=== PATIENT | female | born 1950 | race Caucasian/White ===

== ENCOUNTER 2016-10-29 12:29 | Inpatient (IN) | payer MEDICARE, OTHER ==
[~2016-10-29] VITALS: Ht 162.6 cm; Wt 82.6 kg
[~2016-10-29 12:29] MED LIST: AMOX500C2; ASP325T PO; [UNRECOGNIZED DRUG - OTHER]
[2016-10-29] MEDS ORDERED: NS IV 1000 ML 1,000 ML IV ONE (13:00)
--- NOTE | 2016-10-29 13:07 | ED Abdominal Pain ---
General Chief Complaint: Abdominal/GI Problems Stated Complaint: FOOD POISONING Nursing Triage Note: C/o abd discomfort since yesterday. Amb to rm 10, states she started having full bloated feeling in abd diffusely radiating to lower back since yesterday. States she is unable to get comfortable and is currently rolling from side to side moaning. Anxious. Denies fever, vomiting or diarrhea. Thinks she maybe got food poisoning. Is able to stop moaning and rolling to mess with cell phone. States she is worried she may have twisitng or a hernia or heart attack or constipation Sepsis Screen: No Definite Risk Source of Information: Patient Exam Limitations: No Limitations History of Present Illness Time Seen By Provider: 12:50 Initial Comments Here with a variety of complaints that center around her abdomen. Patient reports that she has abdominal bloating and pain since yesterday after eating and thinks she may have food poisoning. She reports that she does have irritable bowel symptoms. She did have 3 bowel movements yesterday but none today. Does report nausea but no vomiting. She reports intermittent fever and chills. Denies dysuria. She has been able to drink some water today. Timing/Duration: 24 Hours Severity/Quality: Moderate, Cramping Location: Generalized Abdomen Radiation: Back Activities at Onset: None Modifying Factors: Improves With Movement Associated Symptoms: Back Pain, No Chest Pain, Fever/Chills, Fatigue, Nausea/ Vomiting, No Shortness of Air, Swelling/Mass in Abdomen, No Weakness Allergies and Home Medications Allergies Coded Allergies: codeine (Unverified Allergy, Mild, 10/29/16) ibuprofen (Unverified Allergy, Mild, 10/29/16) Home Medications Aspirin 325 Mg Tab, (Reported) [Natural Vitamins] , (Reported) Review of Systems Constitutional: see HPI, No chills, No fever EENTM: No Symptoms Reported Respiratory: No Symptoms Reported Cardiovascular: No Symptoms Reported Gastrointestinal: See HPI, Abdomen Distended, Abdominal Pain, Denies Diarrhea, Nausea, Denies Rectal Bleeding, Denies Vomiting Genitourinary: Denies Discharge, Denies Pain Musculoskeletal: no symptoms reported Skin: no symptoms reported All Other Systems Reviewed Negative Unless Noted: Yes Past Tspoecv-Sdqlhg-Vczqlh Hx Patient Social History Alcohol Use: Rarely Uses Recreational Drug Use: No Smoking Status: Never a Smoker 2nd Hand Smoke Exposure: No Recent Foreign Travel: No Contact w/Someone Who Travel: No Recent Infectious Disease Expo: No Recent Hopitalizations: No Immunizations Up To Date Tetanus Booster (TDap): Unknown Surgeries HX Surgeries: Yes (D &C) Respiratory Hx Respiratory Disorders: Yes (02 AT NIGHT ) Cardiovascular Hx Cardiac Disorders: No Cardiac Disorders: High Cholesterol Neurological Hx Neurological Disorders: No Genitourinary Hx Genitourinary Disorders: No Gastrointestinal Hx Gastrointestinal Disorders: Yes Gastrointestinal Disorders: Polyps Musculoskeletal Hx Musculoskeletal Disorders: Yes Musculoskeletal Disorders: Arthritis Endocrine Hx Endocrine Disorders: No Cancer Hx Cancer: No Psychosocial Hx Psychiatric Problems: Yes Behavioral Health Disorders: Anxiety Reviewed Nursing Assessment Reviewed/Agree w Nursing PMH: Yes Family Medical History Significant Family History: No Pertinent Family Hx Physical Exam Vital Signs VS - Last 72 Hours, by Label 10/29/16 12:44 Temp 97.6 Pulse 115 Resp 18 B/P (MAP) 178/104 Pulse Ox 96 Capillary Refill : Less Than 3 Seconds General Appearance: WD/WN, no apparent distress HEENT: PERRL/EOMI, pharynx normal Neck: full range of motion, supple Respiratory: lungs clear, normal breath sounds Cardiovascular: no murmur, tachycardia Gastrointestinal: normal bowel sounds, soft, No distended, No guarding, No rebound, tenderness (diffuse mild) Extremities: non-tender, normal inspection Back: normal inspection, no CVA tenderness, no vertebral tenderness Neurologic/Psychiatric: alert, oriented x 3 Skin: normal color, warm/dry Progress/Results/Core Measures Results/Orders Lab Results Laboratory Tests Test 10/29/16 13:04 Range/Units White Blood Count 10.4 4.3-11.0 10^3/uL Red Blood Count 4.79 4.35-5.85 10^6/uL Hemoglobin 14.8 11.5-16.0 G/DL Hematocrit 44 35-52 % Mean Corpuscular Volume 92 80-99 FL Mean Corpuscular Hemoglobin 31 25-34 PG Mean Corpuscular Hemoglobin Concent 34 32-36 G/DL Red Cell Distribution Width 14.3 10.0-14.5 % Platelet Count 267 130-400 10^3/uL Mean Platelet Volume 9.6 7.4-10.4 FL Neutrophils (%) (Auto) 89 H 42-75 % Lymphocytes (%) (Auto) 7 L 12-44 % Monocytes (%) (Auto) 3 0-12 % Eosinophils (%) (Auto) 0 0-10 % Basophils (%) (Auto) 0 0-10 % Neutrophils # (Auto) 9.2 H 1.8-7.8 X 10^3 Lymphocytes # (Auto) 0.8 L 1.0-4.0 X 10^3 Monocytes # (Auto) 0.3 0.0-1.0 X 10^3 Eosinophils # (Auto) 0.0 0.0-0.3 10^3/uL Basophils # (Auto) 0.0 0.0-0.1 10^3/uL Urine Color YELLOW Urine Clarity CLEAR Urine pH 5 5-9 Urine Specific [place] 1.025 H 1.016-1.022 Urine Protein NEGATIVE NEGATIVE Urine Glucose (UA) NEGATIVE NEGATIVE Urine Ketones NEGATIVE NEGATIVE Urine Nitrite POSITIVE H NEGATIVE Urine Bilirubin NEGATIVE NEGATIVE Urine Urobilinogen NORMAL NORMAL MG/DL Urine Leukocyte Esterase 1+ H NEGATIVE Urine RBC (Auto) 1+ H NEGATIVE Urine RBC NONE /HPF Urine WBC 5-10 H /HPF Urine Crystals NONE /LPF Urine Bacteria LARGE H /HPF Urine Casts NONE /LPF Urine Mucus SMALL H /LPF Urine Culture Indicated YES Sodium Level 140 135-145 MMOL/L Potassium Level 4.1 3.6-5.0 MMOL/L Chloride Level 103 98-107 MMOL/L Carbon Dioxide Level 22 21-32 MMOL/L Anion Gap 15 H 5-14 MMOL/L Blood Urea Nitrogen 19 H 7-18 MG/DL Creatinine 0.86 0.60-1.30 MG/DL Estimat Glomerular Filtration Rate > 60 BUN/Creatinine Ratio 22 Glucose Level 139 H 70-105 MG/DL Calcium Level 9.9 8.5-10.1 MG/DL Magnesium Level 2.2 1.8-2.4 MG/DL Total Bilirubin 0.4 0.1-1.0 MG/DL Aspartate Amino Transf (AST/SGOT) 39 H 5-34 U/L Alanine Aminotransferase (ALT/SGPT) 95 H 0-55 U/L Alkaline Phosphatase 73 40-136 U/L C-Reactive Protein High Sensitivity 1.39 H 0.00-0.50 MG/DL Total Protein 7.5 6.4-8.2 G/DL Albumin 4.1 3.2-4.5 G/DL Micro Results Microbiology 10/29/16 Influenza Types A,B Antigen (CAROLIN) - Final, Complete My Orders Orders - SHAHEED,CATRACHITO D MD Cbc With Automated Diff (10/29/16 13:00) Comprehensive Metabolic Panel (10/29/16 13:00) Hs C Reactive Protein (10/29/16 13:00) Magnesium (10/29/16 13:00) Ua Culture If Indicated (10/29/16 13:00) Influenza A And B Antigens (10/29/16 13:00) Saline Lock/Iv-Start (10/29/16 13:00) Ns Iv 1000 Ml (Sodium Chloride 0.9%) (10/29/16 13:00) Ct Abdomen/Pelvis Wo (10/29/16 13:25) Urine Culture (10/29/16 13:04) Pantoprazole Injection (Protonix Injecti (10/29/16 14:45) Amylase (10/29/16 14:45) Lipase (10/29/16 14:45) Fentanyl Injection (Sublimaze Injection (10/29/16 14:52) Ondansetron Injection (Zofran Injectio (10/29/16 15:00) Medications Given in ED Current Medications Medications Dose Ordered Sig/Latasha Route Start Time Stop Time Status Last Admin Dose Admin Sodium Chloride 1,000 ml @ 0 mls/hr Q0M ONCE IV 10/29/16 13:00 10/29/16 13:02 DC 10/29/16 13:10 1,000 MLS/HR Vital Signs/I&O Vital Sign - Last 12Hours 10/29/16 12:44 Temp 97.6 Pulse 115 Resp 18 B/P (MAP) 178/104 Pulse Ox 96 Blood Pressure Mean: 128 Progress Note : Progress Note Seen and evaluated. IV, labs, UA, normal saline 1 L bolus ordered. Monitor patient. 1441: CT findings discussed with radiologist. Concerns for peptic ulcer disease is fairly significant. Protonix 80 mg IV. Fentanyl 25 g IV and Zofran 4 mg IV ordered. I did discuss the case with Dr. Summers. We will admit the patient to the hospital for further evaluation. Initiate Rocephin and Flagyl therapy. Rocephin 1 g IV ordered. Case discussed with patient who agrees to admission. Patient has both peptic ulcer disease and urinary tract infection. Case discussed with Dr. Sanz, on-call for Dr. Walters. He accepts patient for admission, inpatient status. Dr. Summers will consult. Diagnostic Imaging Diagonstic Imaging: CT Plain Films/CT/US/NM/MRI: abdomen, pelvis Comments Preliminary read with significant amount of inflammatory changes around the duodenum and pancreas concerning for peptic ulcer disease. Final report pending. Discussed with radiologist. Reviewed: Discussed w/Radiologist Departure Communication Time/Spoke to Admitting Phy: 15:04 Time/Spoke to Consulting Physi: 14:41 Impression Impression: Primary Impression: Peptic ulcer disease Additional Impression: Urinary tract infection Qualified Codes: N30.00 - Acute cystitis without hematuria Disposition: ADMITTED INPATIENT Condition: Stable Decision to Admit Reason: Admit from ER (General) Decision to Admit/Date: Oct 29, 2016 Time/Decision to Admit Time: 14:41 Departure-Patient Inst. Referrals: HAYDER WALTERS MD (PCP/Family) Primary Care Physician CATRACHITO HUMMEL MD Oct 29, 2016 13:07
[2016-10-29 13:12] LABS: BASOPHILS % (AUTO) 0 % (0-10); BILIRUBIN,URINE NEGATIVE (NEGATIVE); EOSINOPHILS % (AUTO) 0 % (0-10); KETONES,URINE NEGATIVE (NEGATIVE); LEUKOCYTE ESTERASE ,URINE 1+ (NEGATIVE); LYMPHOCYTES # (AUTO) 0.8 X 10^3 (1.0-4.0); LYMPHOCYTES % (AUTO) 7 % (12-44); MEAN CORPUSCULAR HEMOGLOBIN 31 PG (25-34); MEAN CORPUSCULAR HGB CONC 34 G/DL (32-36); MEAN CORPUSCULAR VOLUME 92 FL (80-99); MEAN PLATELET VOLUME 9.6 FL (7.4-10.4); MONOCYTES # (AUTO) 0.3 X 10^3 (0.0-1.0); MONOCYTES % (AUTO) 3 % (0-12); NEUTROPHILS # (AUTO) 9.2 X 10^3 (1.8-7.8); NEUTROPHILS % (AUTO) 89 % (42-75); NITRITE,URINE POSITIVE (NEGATIVE); PH,URINE 5 (5-9); PLATELET COUNT 267 10^3/uL (130-400); PROTEIN,URINE NEGATIVE (NEGATIVE); RED BLOOD COUNT 4.79 10^6/uL (4.35-5.85); RED CELL DISTRIBUTION WIDTH 14.3 % (10.0-14.5); UROBILINOGEN,URINE NORMAL (NORMAL); WHITE BLOOD COUNT 10.4 10^3/uL (4.3-11.0)
[2016-10-29 13:31] LABS: ANION GAP 15 MMOL/L (5-14); BLOOD UREA NITROGEN 19 MG/DL (7-18); BUN/CREATININE RATIO 22; CARBON DIOXIDE 22 MMOL/L (21-32); CHLORIDE 103 MMOL/L (98-107); CREATININE SERUM 0.86 MG/DL (0.60-1.30); POTASSIUM 4.1 MMOL/L (3.6-5.0); SODIUM 140 MMOL/L (135-145)
[2016-10-29 13:32] LABS: ALANINE AMINOTRANSFERASE 95 U/L (0-55); ALBUMIN 4.1 G/DL (3.2-4.5); ASPARTATE AMINO TRANSFERASE 39 U/L (5-34); BILIRUBIN,TOTAL 0.4 MG/DL (0.1-1.0); CALCIUM 9.9 MG/DL (8.5-10.1); GFR ESTIMATED > 60; GLUCOSE 139 MG/DL (70-105); MAGNESIUM 2.2 MG/DL (1.8-2.4); TOTAL PROTEIN 7.5 G/DL (6.4-8.2); hs C REACTIVE PROTEIN 1.39 MG/DL (0.00-0.50)
[2016-10-29] MEDS ORDERED: PANTOPRAZOLE 40 MG/10 ML (PROTONIX) VIAL IV ONE (14:45)
[2016-10-29] MEDS ORDERED: fentaNYL INJECTION 100 MCG/2 ML AMP IVP STA (14:52)
[2016-10-29] MEDS ORDERED: ONDANSETRON 4 MG/2 ML (SDV) Z0FRAN IVP ONE (15:00)
[2016-10-29 15:02] LABS: AMYLASE 135 U/L (25-125); LIPASE 219 U/L (8-78)
[2016-10-29 16:15] VITALS: BP 146/84
--- NOTE | 2016-10-29 16:17 | Diagnostic Imaging Report ---
PROCEDURE: CT abdomen and pelvis without contrast. TECHNIQUE: Multiple contiguous axial images were obtained through the abdomen and pelvis without the use of intravenous contrast. INDICATION: Abdominal pain and bloating. COMPARISON: 08/28/2012. FINDINGS: Lung bases are clear. There is diffuse hepatic steatosis with some focal sparing about the gallbladder fossa. The gallbladder appears unremarkable. There is diffuse thickening of the distal duodenum and there is considerable surrounding inflammatory stranding which is concerning for peptic ulcer disease. There is considerable irregular air and thickening along the ventral aspect of the duodenum and along the superior aspect, slightly concerning for a contained perforation.There is inflammatory stranding extending inferiorly from the duodenum into the retroperitoneum and into the inguinal regions bilaterally. No focal abscess is seen. There is no free fluid. There is diverticulosis without evidence of diverticulitis. There is no evidence of appendicitis. The kidneys appear unremarkable. Uterus and adnexa appear unremarkable. There is calcification of abdominal aorta without aneurysm. No acute osseous abnormality is seen. IMPRESSION: 1. There are findings concerning for peptic ulcer disease of the duodenum with significant surrounding inflammatory change. Cannot exclude a small contained perforation. No discrete abscess is seen. Inflammatory changes from this process extend inferiorly throughout the retroperitoneum into the groin. 2. No additional significant abnormality is seen. There is diverticulosis without evidence of diverticulitis. Findings were phoned to Dr. Clark by Dr. Pippa Chowdhury 2:17 p.m. on 10/29/2016. Dictated by: Dictated on workstation # [id number]
[2016-10-29] MEDS ORDERED: CATHETER FLUSH 10 ML SYR IV PRN (16:45)
[2016-10-29] MEDS ORDERED: ONDANSETRON 4 MG/2 ML (SDV) Z0FRAN IV PRN (16:45)
--- NOTE | 2016-10-29 16:49 | History & Physical ---
History of Present Illness History of Present Illness Reason for visit/HPI 66-year-old female admitted for suspected peptic ulcer disease based on CT findings- inflammatory stranding, diffusing thickening, around duodenum- possible perforation. Patient reports abdominal pain started last night; she has not eaten or drinking much since then. Abdominal pain is located in her upper abdomen, maybe a little radiation to the back. Patient has associated nausea but no vomiting denies any hematemesis or melena. Patient denies any history of peptic ulcer. She does believe she had a EGD and colonoscopy by Dr. Duke in 2010. Patient reports she is due for another colonoscopy in 2020. Her pain is stable- not worsening or getting better. patient denies any recent fevers denies any recent antibiotic use. Patient does believe she has irritable bowel syndrome diarrhea predominant. Patient feels a tightness bandlike on her upper abdomen which makes her feel like she can't sit still. Date of Admission Oct 29, 2016 at 15:05 I consulted on this patient on 10/29/16 16:44 Attending Physician Gayatri Walters MD Admitting Physician Yong Mcdaniels MD Consult Ed Summers DO Allergies and Home Medications Allergies Coded Allergies: codeine (Verified Allergy, Mild, 10/29/16) ibuprofen (Verified Allergy, Mild, 10/29/16) Home Medications Aspirin 325 Mg Tab, (Reported) [Natural Vitamins] , (Reported) Past Swowybs-Wialjz-Dutmwd Hx Patient Social History Alcohol Use: Rarely Uses Recreational Drug Use: No Smoking Status: Never a Smoker 2nd Hand Smoke Exposure: No Recent Foreign Travel: No Contact w/other who traveled: No Recent Hopitalizations: No Recent Infectious Disease Expo: No Immunizations Up To Date Tetanus Booster (TDap): Unknown Surgeries HX Surgeries: Yes (D &C) Respiratory Hx Respiratory Disorders: Yes (02 AT NIGHT ) Cardiovascular Hx Cardiovascular Disorders: No Cardiac Disorders: High Cholesterol Neurological Hx Neurological Disorders: No Genitourinary Hx Genitourinary Disorders: No Gastrointestinal Hx Gastrointestinal Disorders: Yes Gastrointestinal Disorders: Polyps Musculoskeletal Hx Musculoskeletal Disorders: Yes Musculoskeletal Disorders: Arthritis Endocrine Hx Endocrine Disorders: No Cancer Hx Cancer: No Psychosocial Hx Psychiatric Problems: Yes Behavioral Health Disorders: Anxiety Reviewed Nursing Assessment Reviewed/Agree w Nursing PMH: Yes Family Medical History Significant Family History: No Pertinent Family Hx Review of Systems Review of Systems General: No Chills, No Night Sweats, Fatigue, Malaise, Appetite (poor appetite) HEENT: No Head Aches, No Visual Changes Pulmonary: Dyspnea (not acute though), No Cough Cardiovascular: Chest Pain (maybe (but it is more upper abdomen)), No: Palpitations Gastrointestinal: Abdominal Pain, Nausea, No: Vomiting Genitourinary: No Dysuria, No Frequency Musculoskeletal: No: neck pain, shoulder pain Neurological: No: Numbness, Weakness All Other Systems Reviewed All Other Systems Reviewed: Yes Physical Exam Vital Signs Vital Sign - Last 12Hours 10/29/16 10/29/16 12:44 16:15 Temp 97.6 Pulse 115 Resp 18 B/P (MAP) 178/104 Pulse Ox 96 O2 Delivery Room Air Capillary Refill : Less Than 3 Seconds General Appearance: WD/WN, Anxious, Mild Distress Eyes: Bilateral Eye Normal Inspection HEENT: PERRL/EOMI Neck: Non Tender, Supple Respiratory: Chest Non Tender, Lungs Clear, Normal Breath Sounds, No Accessory Muscle Use, No Respiratory Distress Cardiovascular: Regular Rate, Rhythm, No Edema Gastrointestinal: Normal Bowel Sounds, No Distended, No Guarding, Tenderness ( upper abdomen) Rectal: Deferred Back: No CVA Tenderness, No Vertebral Tenderness Extremity: Normal Range of Motion, Non Tender, No Calf Tenderness, No Pedal Edema Neurologic/Psychiatric: Alert, Oriented x3, No Motor/Sensory Deficits, Normal Mood/Affect Skin: Warm/Dry Assessment/Plan Assessment/Plan Assessment/Plan 66 yo F admitted 10/29/16 Upper abdominal pain- CT suggestive of peptic ulcer disease- IV protonix, NPO covering with rocephin and metronidazole. Peptic ulcer disease- as above- Dr. Summers consulted. urinary tract infection- rocephin, urine culture pending. HTN- blood pressure is elevated- maybe attributed to pain- if continues to be elevated will add antihypertensive. HLD- pt takes supplements- declines starting statins. nocturnal hypoxia- oxygen via NC. anxiety- monitor DVT: SCDs, holding chemoppx at this time due to potential GI bleed. Dispo: Surgery to see pt and make recommendations- Problems: Clinical Quality Measures DVT/VTE Risk/Contraindication: Risk Factor Score Per Nursin RFS Level Per Nursing on Admit: 3=High YONG MCDANIELS MD Oct 29, 2016 16:49
[2016-10-29] MEDS: NS IV 1000 ML 1,000 ML IV SCH (17:05)
[2016-10-29] MEDS: fentaNYL INJECTION 100 MCG/2 ML AMP IV PRN ×2 (17:08→21:10)
[2016-10-29] MEDS: cefTRIAXone 1 GM/NS 50 ML IVPB IV SCH ×2 (17:09)
[2016-10-29] MEDS: metroNIDAZOLE 500MG/100ML IVPB 100 ML IV SCH (17:44)
[2016-10-29] MEDS: PANTOPRAZOLE IV SCH ×2 (17:45)
[2016-10-29] MEDS: NS IV SCH ×2 (17:45)
[2016-10-29 20:00] VITALS: BP 131/77
[2016-10-30] VITALS (7 sets, daily range): BP systolic 102–133; BP diastolic 59–80
[2016-10-30] MEDS: fentaNYL INJECTION 100 MCG/2 ML AMP IV PRN ×3 (00:14→20:54)
[2016-10-30] MEDS: metroNIDAZOLE 500MG/100ML IVPB 100 ML IV SCH ×3 (00:53→17:26)
[2016-10-30] MEDS: NS IV 1000 ML 1,000 ML IV SCH ×4 (00:53→17:42)
[2016-10-30] MEDS: ACETAMINOPHEN 500 MG TAB (TYLENOL) PO PRN (05:01)
--- NOTE | 2016-10-30 08:14 | Progress Note (SOAP) ---
Subjective Subjective 66 yo F with acute abdominal pain- Pt had a fever of 101F overnight- apap given- no fevers since. No overnight events otherwise. Pt reports being thirsty- her abdominal pain has improved. Review of Systems General: No Chills, No Night Sweats, Fatigue, Malaise, Appetite (poor appetite but she is thirsty) HEENT: No Head Aches, No Visual Changes Pulmonary: Dyspnea (not acute though), No Cough Cardiovascular: Chest Pain (maybe (but it is more upper abdomen)), No: Palpitations Gastrointestinal: Abdominal Pain, Nausea, No: Vomiting Genitourinary: No Dysuria, No Frequency Musculoskeletal: No: neck pain, shoulder pain Neurological: No: Numbness, Weakness All Other Systems Reviewed All Other Systems Reviewed: Yes Objective Exam Vital Signs Vital Signs Date Time Temp Pulse Resp B/P (MAP) Pulse Ox O2 Delivery O2 Flow Rate FiO2 10/30/16 07:57 97.3 88 20 128/79 90 Nasal Cannula 2.00 10/30/16 06:37 98.1 10/30/16 06:00 98.1 10/30/16 05:01 101.0 10/30/16 04:35 101.2 86 20 111/63 92 Nasal Cannula 2.00 10/30/16 00:00 99.4 99 20 133/79 95 Nasal Cannula 2.00 10/29/16 20:00 99.8 91 20 131/77 94 Room Air 10/29/16 20:00 Nasal Cannula 2.00 10/29/16 16:15 98.8 94 20 146/84 93 Room Air 10/29/16 16:11 106 18 92 10/29/16 12:44 97.6 115 18 178/104 96 I & O 10/30/16 07:00 Intake Total 2200 ml Balance 2200 ml General Appearance: WD/WN, Anxious, Mild Distress HEENT: PERRL/EOMI Neck: Non Tender, Supple Respiratory: Chest Non Tender, Lungs Clear, Normal Breath Sounds, No Accessory Muscle Use, No Respiratory Distress Cardiovascular: Regular Rate, Rhythm, No Edema Gastrointestinal: Normal Bowel Sounds, No Distended, No Guarding, Tenderness ( upper abdomen) Rectal: Deferred Back: No CVA Tenderness, No Vertebral Tenderness Extremity: Normal Range of Motion, Non Tender, No Calf Tenderness, No Pedal Edema Neurologic/Psychiatric: Alert, Oriented x3, No Motor/Sensory Deficits, Normal Mood/Affect Skin: Warm/Dry Results Lab Laboratory Tests 10/29/16 13:04: White Blood Count 10.4, Red Blood Count 4.79, Hemoglobin 14.8, Hematocrit 44, Mean Corpuscular Volume 92, Mean Corpuscular Hemoglobin 31, Mean Corpuscular Hemoglobin Concent 34, Red Cell Distribution Width 14.3, Platelet Count 267, Mean Platelet Volume 9.6, Neutrophils (%) (Auto) 89H, Lymphocytes (%) (Auto) 7L , Monocytes (%) (Auto) 3, Eosinophils (%) (Auto) 0, Basophils (%) (Auto) 0, Neutrophils # (Auto) 9.2H, Lymphocytes # (Auto) 0.8L, Monocytes # (Auto) 0.3, Eosinophils # (Auto) 0.0, Basophils # (Auto) 0.0, Urine Color YELLOW, Urine Clarity CLEAR, Urine pH 5, Urine Specific [place] 1.025H, Urine Protein NEGATIVE , Urine Glucose (UA) NEGATIVE, Urine Ketones NEGATIVE, Urine Nitrite POSITIVEH, Urine Bilirubin NEGATIVE, Urine Urobilinogen NORMAL, Urine Leukocyte Esterase 1+ H, Urine RBC (Auto) 1+H, Urine RBC NONE, Urine WBC 5-10H, Urine Crystals NONE, Urine Bacteria LARGEH, Urine Casts NONE, Urine Mucus SMALLH, Urine Culture Indicated YES, Sodium Level 140, Potassium Level 4.1, Chloride Level 103, Carbon Dioxide Level 22, Anion Gap 15H, Blood Urea Nitrogen 19H, Creatinine 0.86 , Estimat Glomerular Filtration Rate > 60, BUN/Creatinine Ratio 22, Glucose Level 139H, Calcium Level 9.9, Magnesium Level 2.2, Total Bilirubin 0.4, Aspartate Amino Transf (AST/SGOT) 39H, Alanine Aminotransferase (ALT/SGPT) 95H, Alkaline Phosphatase 73, C-Reactive Protein High Sensitivity 1.39H, Total Protein 7.5, Albumin 4.1, Amylase Level 135H, Lipase 219H Microbiology 10/29/16 Influenza Types A,B Antigen (CAROLIN) - Final, Complete 10/29/16 Urine Culture - Preliminary, Resulted Escherichia Coli Assessment/Plan Assessment/Plan Assessment/Plan 66 yo F admitted 10/29/16 Upper abdominal pain- CT suggestive of peptic ulcer disease-with irregular air , stranding, thickening of duodenum- possible small perforation- IV protonix , NPO covering with rocephin and metronidazole. Peptic ulcer disease concern for a small contained perforation- as above- Dr. Summers consulted. EGD? urinary tract infection- continue rocephin, urine culture + ecoli HTN- blood pressure was elevated on admission- maybe attributed to pain- if continues to be elevated will add antihypertensive- currently normotensive- HLD- pt takes supplements- declines starting statins. nocturnal hypoxia- oxygen while sleeping via NC. anxiety- monitor DVT: SCDs, holding chemoppx at this time due to potential GI bleed. Dispo: await surgery recommendations- monitoring vitals, pain, labs- currently NPO- covering with rocephin and flagyl. Problems: Clinical Quality Measures DVT/VTE Risk/Contraindication: Risk Factor Score Per Nursin RFS Level Per Nursing on Admit: 3=High Contraindications-Pharm: Other *list below* Other: Peptic ulcer disease JEZ MCDANIELS MD Oct 30, 2016 08:14
[2016-10-30] MEDS: cefTRIAXone 1 GM/NS 50 ML IVPB IV SCH ×2 (08:55)
[2016-10-30 09:43] LABS: BASOPHILS % (AUTO) 0 % (0-10); EOSINOPHILS # (AUTO) 0.1 10^3/uL (0.0-0.3); EOSINOPHILS % (AUTO) 1 % (0-10); LYMPHOCYTES # (AUTO) 1.6 X 10^3 (1.0-4.0); LYMPHOCYTES % (AUTO) 17 % (12-44); MEAN CORPUSCULAR HEMOGLOBIN 31 PG (25-34); MEAN CORPUSCULAR HGB CONC 33 G/DL (32-36); MEAN CORPUSCULAR VOLUME 93 FL (80-99); MEAN PLATELET VOLUME 9.7 FL (7.4-10.4); MONOCYTES # (AUTO) 0.6 X 10^3 (0.0-1.0); MONOCYTES % (AUTO) 6 % (0-12); NEUTROPHILS # (AUTO) 7.2 X 10^3 (1.8-7.8); NEUTROPHILS % (AUTO) 76 % (42-75); PLATELET COUNT 227 10^3/uL (130-400); RED BLOOD COUNT 4.25 10^6/uL (4.35-5.85); RED CELL DISTRIBUTION WIDTH 14.5 % (10.0-14.5); WHITE BLOOD COUNT 9.5 10^3/uL (4.3-11.0)
--- NOTE | 2016-10-30 10:15 | Consultation ---
History of Present Illness History of Present Illness Patient Consulted On(melanie/time) 10/30/16 10:08 Date of Admission History of Present Illness Consult for Peptic ulcer disease, abdominal pain. Patient is a 66 year old female who was having abdominal pain for 2 days that is in middle of abdomen and radiating to back. Can't get comfortable. States aching and sharp pain. Having some nausea no emesis. Some fever at times. States she's been taking tums more increasingly last couple months. Denies sweats chills shortness of breath or chest pain. Today pain is aching and much improved. Has had problems with urination and lately having more of an odor. Ct scan inflammation around duodenum and head of pancreas into retroperitoneum, no abscess. Allergies and Home Medications Allergies Coded Allergies: codeine (Verified Allergy, Mild, 10/29/16) ibuprofen (Verified Allergy, Mild, 10/29/16) Home Medications Aspirin 325 Mg Tab, (Reported) [Natural Vitamins] , (Reported) Past [id number] Hx Patient Social History Alcohol Use: Denies Use Recreational Drug Use: No Smoking Status: Never a Smoker 2nd Hand Smoke Exposure: No Recent Foreign Travel: No Contact w/Someone Who Travel: No Recent Infectious Disease Expo: No Recent Hopitalizations: No Physical Abuse Screen: No Sexual Abuse: No Immunizations Up To Date Tetanus Booster (TDap): Unknown Seasonal Allergies Seasonal Allergies: No Surgeries HX Surgeries: Yes (D &C) Respiratory Hx Respiratory Disorders: Yes (02 AT NIGHT ) Cardiovascular Hx Cardiac Disorders: No Cardiac Disorders: High Cholesterol Neurological Hx Neurological Disorders: No Genitourinary Hx Genitourinary Disorders: No Gastrointestinal Hx Gastrointestinal Disorders: Yes Gastrointestinal Disorders: Polyps, Irritable Bowel Musculoskeletal Hx Musculoskeletal Disorders: Yes Musculoskeletal Disorders: Arthritis Endocrine Hx Endocrine Disorders: No Cancer Hx Cancer: No Psychosocial Hx Psychiatric Problems: Yes Behavioral Health Disorders: Anxiety Reviewed Nursing Assessment Reviewed/Agree w Nursing PMH: Yes Family Medical History Significant Family History: No Pertinent Family Hx Family Medial History: Alzheimer's disease 19 MOTHER Cardiovascular disease G8 BROTHER Myocardial infarction G8 BROTHER Respiratory disorder SON Review of Systems-General Constitutional: see HPI EENTM: no symptoms reported Respiratory: no symptoms reported Cardiovascular: no symptoms reported Gastrointestinal: see HPI Genitourinary: see HPI Musculoskeletal: see HPI Skin: no symptoms reported Psychiatric/Neurological: No Symptoms Reported Physical Exam-General Problems Physical Exam Vital Signs Vital Sign - Last 12Hours 10/29/16 10/29/16 12:44 16:15 Temp 97.6 Pulse 115 Resp 18 B/P (MAP) 178/104 Pulse Ox 96 O2 Delivery Room Air Capillary Refill : Less Than 3 Seconds General Appearance: no apparent distress (sitting in chair) Neck: supple Respiratory: no respiratory distress, no accessory muscle use Cardiovascular: regular rate, rhythm Gastrointestinal: other (slight tenderness epigastric region) Rectal: deferred Back: normal inspection Extremities: non-tender, normal inspection Neurologic/Psychiatric: alert, normal mood/affect, oriented x 3 Skin: warm/dry Data Review Labs Laboratory Tests 10/29/16 13:04: White Blood Count 10.4, Red Blood Count 4.79, Hemoglobin 14.8, Hematocrit 44, Mean Corpuscular Volume 92, Mean Corpuscular Hemoglobin 31, Mean Corpuscular Hemoglobin Concent 34, Red Cell Distribution Width 14.3, Platelet Count 267, Mean Platelet Volume 9.6, Neutrophils (%) (Auto) 89H, Lymphocytes (%) (Auto) 7L , Monocytes (%) (Auto) 3, Eosinophils (%) (Auto) 0, Basophils (%) (Auto) 0, Neutrophils # (Auto) 9.2H, Lymphocytes # (Auto) 0.8L, Monocytes # (Auto) 0.3, Eosinophils # (Auto) 0.0, Basophils # (Auto) 0.0, Urine Color YELLOW, Urine Clarity CLEAR, Urine pH 5, Urine Specific [place] 1.025H, Urine Protein NEGATIVE , Urine Glucose (UA) NEGATIVE, Urine Ketones NEGATIVE, Urine Nitrite POSITIVEH, Urine Bilirubin NEGATIVE, Urine Urobilinogen NORMAL, Urine Leukocyte Esterase 1+ H, Urine RBC (Auto) 1+H, Urine RBC NONE, Urine WBC 5-10H, Urine Crystals NONE, Urine Bacteria LARGEH, Urine Casts NONE, Urine Mucus SMALLH, Urine Culture Indicated YES, Sodium Level 140, Potassium Level 4.1, Chloride Level 103, Carbon Dioxide Level 22, Anion Gap 15H, Blood Urea Nitrogen 19H, Creatinine 0.86 , Estimat Glomerular Filtration Rate > 60, BUN/Creatinine Ratio 22, Glucose Level 139H, Calcium Level 9.9, Magnesium Level 2.2, Total Bilirubin 0.4, Aspartate Amino Transf (AST/SGOT) 39H, Alanine Aminotransferase (ALT/SGPT) 95H, Alkaline Phosphatase 73, C-Reactive Protein High Sensitivity 1.39H, Total Protein 7.5, Albumin 4.1, Amylase Level 135H, Lipase 219H 10/30/16 09:31: White Blood Count 9.5, Red Blood Count 4.25L, Hemoglobin 13.1, Hematocrit 39, Mean Corpuscular Volume 93, Mean Corpuscular Hemoglobin 31, Mean Corpuscular Hemoglobin Concent 33, Red Cell Distribution Width 14.5, Platelet Count 227, Mean Platelet Volume 9.7, Neutrophils (%) (Auto) 76H, Lymphocytes (%) (Auto) 17 , Monocytes (%) (Auto) 6, Eosinophils (%) (Auto) 1, Basophils (%) (Auto) 0, Neutrophils # (Auto) 7.2, Lymphocytes # (Auto) 1.6, Monocytes # (Auto) 0.6, Eosinophils # (Auto) 0.1, Basophils # (Auto) 0.0 Microbiology 10/29/16 Influenza Types A,B Antigen (CAROLIN) - Final, Complete 10/29/16 Urine Culture - Preliminary, Resulted Escherichia Coli Assessment/Plan Assessment/Plan Assessment/Plan epigastric abdominal pain epigastric, peptic ulcer dx, pancreatitis, UTI NPO, IV hydration, Protonix drip, Rocephin, Flagyl to cover for possible microperforation overall improving and if continues to improve will likely start clears tomorrow Clinical Quality Measures DVT/VTE Risk/Contraindication: Risk Factor Score Per Nursin RFS Level Per Nursing on Admit: 3=High Contraindications-Pharm: Other *list below* Other: Peptic ulcer disease SENTHIL CLEMENTS DO Oct 30, 2016 10:15 am
[2016-10-30 11:02] LABS: ALANINE AMINOTRANSFERASE 56 U/L (0-55); ALBUMIN 3.3 G/DL (3.2-4.5); ANION GAP 9 MMOL/L (5-14); ASPARTATE AMINO TRANSFERASE 16 U/L (5-34); BILIRUBIN,TOTAL 0.8 MG/DL (0.1-1.0); BLOOD UREA NITROGEN 13 MG/DL (7-18); BUN/CREATININE RATIO 18; CALCIUM 8.2 MG/DL (8.5-10.1); CARBON DIOXIDE 22 MMOL/L (21-32); CHLORIDE 108 MMOL/L (98-107); CREATININE SERUM 0.74 MG/DL (0.60-1.30); GFR ESTIMATED > 60; GLUCOSE 105 MG/DL (70-105); POTASSIUM 3.7 MMOL/L (3.6-5.0); SODIUM 139 MMOL/L (135-145); TOTAL PROTEIN 6.2 G/DL (6.4-8.2)
[2016-10-30] MEDS: NS IV SCH ×2 (16:28)
[2016-10-30] MEDS: PANTOPRAZOLE IV SCH ×2 (16:28)
[2016-10-31] MEDS: NS IV 1000 ML 1,000 ML IV SCH ×3 (01:21→15:34)
[2016-10-31] MEDS: metroNIDAZOLE 500MG/100ML IVPB 100 ML IV SCH ×3 (01:21→17:31)
[2016-10-31] MEDS: fentaNYL INJECTION 100 MCG/2 ML AMP IV PRN ×4 (03:12→22:34)
[2016-10-31 05:23] LABS: BASOPHILS % (AUTO) 0 % (0-10); EOSINOPHILS # (AUTO) 0.3 10^3/uL (0.0-0.3); EOSINOPHILS % (AUTO) 3 % (0-10); LYMPHOCYTES # (AUTO) 1.4 X 10^3 (1.0-4.0); LYMPHOCYTES % (AUTO) 15 % (12-44); MEAN CORPUSCULAR HEMOGLOBIN 31 PG (25-34); MEAN CORPUSCULAR HGB CONC 33 G/DL (32-36); MEAN CORPUSCULAR VOLUME 94 FL (80-99); MEAN PLATELET VOLUME 9.6 FL (7.4-10.4); MONOCYTES # (AUTO) 0.7 X 10^3 (0.0-1.0); MONOCYTES % (AUTO) 7 % (0-12); NEUTROPHILS # (AUTO) 7.4 X 10^3 (1.8-7.8); NEUTROPHILS % (AUTO) 75 % (42-75); PLATELET COUNT 185 10^3/uL (130-400); RED BLOOD COUNT 3.68 10^6/uL (4.35-5.85); RED CELL DISTRIBUTION WIDTH 14.2 % (10.0-14.5); WHITE BLOOD COUNT 9.8 10^3/uL (4.3-11.0)
[2016-10-31 05:53] LABS: ALANINE AMINOTRANSFERASE 39 U/L (0-55); ANION GAP 11 MMOL/L (5-14); ASPARTATE AMINO TRANSFERASE 13 U/L (5-34); BILIRUBIN,TOTAL 0.5 MG/DL (0.1-1.0); BLOOD UREA NITROGEN 9 MG/DL (7-18); BUN/CREATININE RATIO 13; CARBON DIOXIDE 21 MMOL/L (21-32); CHLORIDE 108 MMOL/L (98-107); CREATININE SERUM 0.67 MG/DL (0.60-1.30); GFR ESTIMATED > 60; GLUCOSE 84 MG/DL (70-105); POTASSIUM 3.4 MMOL/L (3.6-5.0); SODIUM 140 MMOL/L (135-145); TOTAL PROTEIN 5.7 G/DL (6.4-8.2)
[2016-10-31 08:00] VITALS: BP 102/65
[2016-10-31 08:19] LABS: AMYLASE 45 U/L (25-125); LIPASE 54 U/L (8-78)
[2016-10-31] MEDS: cefTRIAXone 1 GM/NS 50 ML IVPB IV SCH ×2 (08:30)
--- NOTE | 2016-10-31 09:06 | Progress Note (SOAP) ---
Subjective Subjective/Events-last exam PT IS A 66Y/O FEMALE WHO IS A PATIENT IN MY CLINIC. SHE APPARENTLY HAS BEEN HAVING GI UPSET FOR A FEW WEEKS, HAS BEEN "EATING TUMS" ALL OF THE TIME, AND ALSO TAKES ASPIRIN REGULARLY. SHE STATES THAT HER STOMACH DOES FEEL BETTER TODAY, SHE REPORTS LESS OVERALL DISCOMFORT, ABLE TO MOVE AROUND IN BED BETTER TO GET COMFORTABLE. SHE DENIES CHEST PAIN, SHORTNESS OF BREATH. Review of Systems General: Fatigue, No Malaise, No Appetite HEENT: No Head Aches, No Dysphasia Pulmonary: No Dyspnea, No Cough Cardiovascular: No: Chest Pain, Edema, Palpitations Gastrointestinal: Abdominal Pain, No: Melena, Nausea Genitourinary: No Dysuria Musculoskeletal: No: back pain Neurological: No: Confusion, Weakness Objective Exam Vital Signs Date Time Temp Pulse Resp B/P (MAP) Pulse Ox O2 Delivery O2 Flow Rate FiO2 10/31/16 08:00 99.2 81 20 102/65 93 Nasal Cannula 2.00 10/30/16 23:35 97.8 77 18 102/59 92 Room Air 10/30/16 20:50 Nasal Cannula 2.00 10/30/16 20:16 98.9 87 20 125/62 93 Nasal Cannula 2.00 10/30/16 19:50 2.00 10/30/16 16:00 98.8 83 20 126/80 95 Nasal Cannula 2.00 10/30/16 11:55 97.3 10/30/16 11:25 97.3 77 20 120/80 95 Nasal Cannula 2.00 10/30/16 11:22 97.3 I & O 10/31/16 07:00 Intake Total 3500 ml Balance 3500 ml Capillary Refill : Less Than 3 Seconds General Appearance: No Apparent Distress, WD/WN HEENT: PERRL/EOMI, Pharynx Normal Neck: Full Range of Motion, Supple Respiratory: Chest Non Tender, Crackles (IN BASES BILATERALLY - IMPROVES WITH DEEP INSPIRATION) Cardiovascular: Regular Rate, Rhythm, No Edema Gastrointestinal: soft, tenderness (EPIGASTRIUM), other (DECREASED BOWEL SOUNDS ) Extremity: No Pedal Edema Neurologic/Psychiatric: Alert, Oriented x3, No Motor/Sensory Deficits, Normal Mood/Affect Skin: Normal Color, Warm/Dry Lymphatic: No Adenopathy Results Lab Laboratory Tests 10/30/16 09:31: White Blood Count 9.5, Red Blood Count 4.25L, Hemoglobin 13.1, Hematocrit 39, Mean Corpuscular Volume 93, Mean Corpuscular Hemoglobin 31, Mean Corpuscular Hemoglobin Concent 33, Red Cell Distribution Width 14.5, Platelet Count 227, Mean Platelet Volume 9.7, Neutrophils (%) (Auto) 76H, Lymphocytes (%) (Auto) 17 , Monocytes (%) (Auto) 6, Eosinophils (%) (Auto) 1, Basophils (%) (Auto) 0, Neutrophils # (Auto) 7.2, Lymphocytes # (Auto) 1.6, Monocytes # (Auto) 0.6, Eosinophils # (Auto) 0.1, Basophils # (Auto) 0.0 10/30/16 09:56: Sodium Level 139, Potassium Level 3.7, Chloride Level 108H, Carbon Dioxide Level 22, Anion Gap 9, Blood Urea Nitrogen 13, Creatinine 0.74, Estimat Glomerular Filtration Rate > 60, BUN/Creatinine Ratio 18, Glucose Level 105, Calcium Level 8.2L, Total Bilirubin 0.8, Aspartate Amino Transf (AST/SGOT) 16, Alanine Aminotransferase (ALT/SGPT) 56H, Alkaline Phosphatase 55, Total Protein 6.2L, Albumin 3.3 10/31/16 04:30: White Blood Count 9.8, Red Blood Count 3.68L, Hemoglobin 11.3L, Hematocrit 34L, Mean Corpuscular Volume 94, Mean Corpuscular Hemoglobin 31, Mean Corpuscular Hemoglobin Concent 33, Red Cell Distribution Width 14.2, Platelet Count 185, Mean Platelet Volume 9.6, Neutrophils (%) (Auto) 75, Lymphocytes (%) (Auto) 15, Monocytes (%) (Auto) 7, Eosinophils (%) (Auto) 3, Basophils (%) (Auto) 0, Neutrophils # (Auto) 7.4, Lymphocytes # (Auto) 1.4, Monocytes # (Auto) 0.7, Eosinophils # (Auto) 0.3, Basophils # (Auto) 0.0, Sodium Level 140, Potassium Level 3.4L, Chloride Level 108H, Carbon Dioxide Level 21, Anion Gap 11, Blood Urea Nitrogen 9, Creatinine 0.67, Estimat Glomerular Filtration Rate > 60, BUN/ Creatinine Ratio 13, Glucose Level 84, Calcium Level 8.0L, Total Bilirubin 0.5, Aspartate Amino Transf (AST/SGOT) 13, Alanine Aminotransferase (ALT/SGPT) 39, Alkaline Phosphatase 51, Total Protein 5.7L, Albumin 3.0L, Amylase Level 45, Lipase 54 Microbiology 10/29/16 Influenza Types A,B Antigen (CAROLIN) - Final, Complete 10/29/16 Urine Culture - Preliminary, Resulted Escherichia Coli Assessment/Plan Assessment/Plan Assess & Plan/Chief Complaint DUODENAL PERFORATION ABDOMINAL PAIN ELEVATED AMYLASE, LIPASE HYPOKALEMIA E COLI URINARY TRACT INFECTION DUODENAL PERFORATION - WITH ABDOMINAL PAIN - PT ON PROTONIX IV - CONTINUE - ASSURE THAT PT IS ON BID PROTONIX. ELEVATED AMYLASE AND LIPASE - IMPROVED. HYPOKALEMIA - REPLENISH WITH IV FLUIDS E COLI UTI - CONTINUE WITH ROCEPHIN. Clinical Quality Measures DVT/VTE Risk/Contraindication: Risk Factor Score Per Nursin RFS Level Per Nursing on Admit: 3=High Contraindications-Pharm: Other *list below* Other: Peptic ulcer disease HAYDER MANRIQUE MD Oct 31, 2016 09:06
[2016-10-31] MEDS ORDERED: PANTOPRAZOLE 40 MG/10 ML (PROTONIX) VIAL IV SCH (09:15)
--- NOTE | 2016-10-31 09:30 | Progress Note ---
Subjective Subjective/Events-last exam Patient resting in bed. Even respirations. Easily aroused. Reports pain at 3/10 better than yesterday. ABD still sore. Objective Exam Vital Signs Date Time Temp Pulse Resp B/P (MAP) Pulse Ox O2 Delivery O2 Flow Rate FiO2 10/31/16 08:00 99.2 81 20 102/65 93 Nasal Cannula 2.00 10/30/16 23:35 97.8 77 18 102/59 92 Room Air 10/30/16 20:50 Nasal Cannula 2.00 10/30/16 20:16 98.9 87 20 125/62 93 Nasal Cannula 2.00 10/30/16 19:50 2.00 10/30/16 16:00 98.8 83 20 126/80 95 Nasal Cannula 2.00 10/30/16 11:55 97.3 10/30/16 11:25 97.3 77 20 120/80 95 Nasal Cannula 2.00 10/30/16 11:22 97.3 I & O 10/31/16 07:00 Intake Total 3500 ml Balance 3500 ml Capillary Refill : Less Than 3 Seconds General Appearance: No Apparent Distress, WD/WN HEENT: PERRL/EOMI, Pharynx Normal Neck: Full Range of Motion, Supple Respiratory: Chest Non Tender, No Accessory Muscle Use, No Respiratory Distress Cardiovascular: Regular Rate, Rhythm Gastrointestinal: soft, tenderness (periumbilical pain with palpation. 10), other (DECREASED BOWEL SOUNDS) Extremity: Normal Range of Motion, Non Tender, No Calf Tenderness, No Pedal Edema Neurologic/Psychiatric: Alert, Oriented x3, No Motor/Sensory Deficits, Normal Mood/Affect Skin: Normal Color, Warm/Dry Lymphatic: No Adenopathy Results Lab Laboratory Tests Test 10/29/16 13:04 10/30/16 09:31 10/30/16 09:56 10/31/16 04:30 Range/Units White Blood Count 10.4 9.5 9.8 4.3-11.0 10^3/uL Red Blood Count 4.79 4.25 L 3.68 L 4.35-5.85 10^6/uL Hemoglobin 14.8 13.1 11.3 L 11.5-16.0 G/DL Hematocrit 44 39 34 L 35-52 % Mean Corpuscular Volume 92 93 94 80-99 FL Mean Corpuscular Hemoglobin 31 31 31 25-34 PG Mean Corpuscular Hemoglobin Concent 34 33 33 32-36 G/DL Red Cell Distribution Width 14.3 14.5 14.2 10.0-14.5 % Platelet Count 267 227 185 130-400 10^3/uL Mean Platelet Volume 9.6 9.7 9.6 7.4-10.4 FL Neutrophils (%) (Auto) 89 H 76 H 75 42-75 % Lymphocytes (%) (Auto) 7 L 17 15 12-44 % Monocytes (%) (Auto) 3 6 7 0-12 % Eosinophils (%) (Auto) 0 1 3 0-10 % Basophils (%) (Auto) 0 0 0 0-10 % Neutrophils # (Auto) 9.2 H 7.2 7.4 1.8-7.8 X 10^3 Lymphocytes # (Auto) 0.8 L 1.6 1.4 1.0-4.0 X 10^3 Monocytes # (Auto) 0.3 0.6 0.7 0.0-1.0 X 10^3 Eosinophils # (Auto) 0.0 0.1 0.3 0.0-0.3 10^3/uL Basophils # (Auto) 0.0 0.0 0.0 0.0-0.1 10^3/uL Urine Color YELLOW Urine Clarity CLEAR Urine pH 5 5-9 Urine Specific [place] 1.025 H 1.016-1.022 Urine Protein NEGATIVE NEGATIVE Urine Glucose (UA) NEGATIVE NEGATIVE Urine Ketones NEGATIVE NEGATIVE Urine Nitrite POSITIVE H NEGATIVE Urine Bilirubin NEGATIVE NEGATIVE Urine Urobilinogen NORMAL NORMAL MG/DL Urine Leukocyte Esterase 1+ H NEGATIVE Urine RBC (Auto) 1+ H NEGATIVE Urine RBC NONE /HPF Urine WBC 5-10 H /HPF Urine Crystals NONE /LPF Urine Bacteria LARGE H /HPF Urine Casts NONE /LPF Urine Mucus SMALL H /LPF Urine Culture Indicated YES Sodium Level 140 139 140 135-145 MMOL/L Potassium Level 4.1 3.7 3.4 L 3.6-5.0 MMOL/L Chloride Level 103 108 H 108 H 98-107 MMOL/L Carbon Dioxide Level 22 22 21 21-32 MMOL/L Anion Gap 15 H 9 11 5-14 MMOL/L Blood Urea Nitrogen 19 H 13 9 7-18 MG/DL Creatinine 0.86 0.74 0.67 0.60-1.30 MG/DL Estimat Glomerular Filtration Rate > 60 > 60 > 60 BUN/Creatinine Ratio 22 18 13 Glucose Level 139 H 105 84 70-105 MG/DL Calcium Level 9.9 8.2 L 8.0 L 8.5-10.1 MG/DL Magnesium Level 2.2 1.8-2.4 MG/DL Total Bilirubin 0.4 0.8 0.5 0.1-1.0 MG/DL Aspartate Amino Transf (AST/SGOT) 39 H 16 13 5-34 U/L Alanine Aminotransferase (ALT/SGPT) 95 H 56 H 39 0-55 U/L Alkaline Phosphatase 73 55 51 40-136 U/L C-Reactive Protein High Sensitivity 1.39 H 0.00-0.50 MG/DL Total Protein 7.5 6.2 L 5.7 L 6.4-8.2 G/DL Albumin 4.1 3.3 3.0 L 3.2-4.5 G/DL Amylase Level 135 H 45 25-125 U/L Lipase 219 H 54 8-78 U/L Laboratory Tests 10/30/16 09:31: White Blood Count 9.5, Red Blood Count 4.25L, Hemoglobin 13.1, Hematocrit 39, Mean Corpuscular Volume 93, Mean Corpuscular Hemoglobin 31, Mean Corpuscular Hemoglobin Concent 33, Red Cell Distribution Width 14.5, Platelet Count 227, Mean Platelet Volume 9.7, Neutrophils (%) (Auto) 76H, Lymphocytes (%) (Auto) 17 , Monocytes (%) (Auto) 6, Eosinophils (%) (Auto) 1, Basophils (%) (Auto) 0, Neutrophils # (Auto) 7.2, Lymphocytes # (Auto) 1.6, Monocytes # (Auto) 0.6, Eosinophils # (Auto) 0.1, Basophils # (Auto) 0.0 10/30/16 09:56: Sodium Level 139, Potassium Level 3.7, Chloride Level 108H, Carbon Dioxide Level 22, Anion Gap 9, Blood Urea Nitrogen 13, Creatinine 0.74, Estimat Glomerular Filtration Rate > 60, BUN/Creatinine Ratio 18, Glucose Level 105, Calcium Level 8.2L, Total Bilirubin 0.8, Aspartate Amino Transf (AST/SGOT) 16, Alanine Aminotransferase (ALT/SGPT) 56H, Alkaline Phosphatase 55, Total Protein 6.2L, Albumin 3.3 10/31/16 04:30: White Blood Count 9.8, Red Blood Count 3.68L, Hemoglobin 11.3L, Hematocrit 34L, Mean Corpuscular Volume 94, Mean Corpuscular Hemoglobin 31, Mean Corpuscular Hemoglobin Concent 33, Red Cell Distribution Width 14.2, Platelet Count 185, Mean Platelet Volume 9.6, Neutrophils (%) (Auto) 75, Lymphocytes (%) (Auto) 15, Monocytes (%) (Auto) 7, Eosinophils (%) (Auto) 3, Basophils (%) (Auto) 0, Neutrophils # (Auto) 7.4, Lymphocytes # (Auto) 1.4, Monocytes # (Auto) 0.7, Eosinophils # (Auto) 0.3, Basophils # (Auto) 0.0, Sodium Level 140, Potassium Level 3.4L, Chloride Level 108H, Carbon Dioxide Level 21, Anion Gap 11, Blood Urea Nitrogen 9, Creatinine 0.67, Estimat Glomerular Filtration Rate > 60, BUN/ Creatinine Ratio 13, Glucose Level 84, Calcium Level 8.0L, Total Bilirubin 0.5, Aspartate Amino Transf (AST/SGOT) 13, Alanine Aminotransferase (ALT/SGPT) 39, Alkaline Phosphatase 51, Total Protein 5.7L, Albumin 3.0L, Amylase Level 45, Lipase 54 Microbiology 10/29/16 Influenza Types A,B Antigen (CAROLIN) - Final, Complete 10/29/16 Urine Culture - Preliminary, Resulted Escherichia Coli Assessment/Plan Assessment/Plan Assessment/Plan abdominal pain epigastric, peptic ulcer dx, pancreatitis, UTI Protonix drip, Rocephin, Flagyl to cover for possible microperforation. Patient continues to improve. Ice chips and advance to clear liquid as tolerated. ELEVATED AMYLASE AND LIPASE - IMPROVED. Summers- Feeling much better today. Abdomen still a little sore in upper part. Denies n/v fever sweats chills shortness of breath or chest pain. general no acute distress appears to be feeling better heart reg lungs nonlabored abdomen soft minimal tenderness no guarding or rebounding ext nontender assessment as above continue current plan likely clears today or tomorrow Clinical Quality Measures DVT/VTE Risk/Contraindication: Risk Factor Score Per Nursin RFS Level Per Nursing on Admit: 3=High Contraindications-Pharm: Other *list below* Other: Peptic ulcer disease AUGUST TUCKER Oct 31, 2016 09:30 SENTHIL SUMMERS DO Oct 31, 2016 17:12
[2016-10-31] MEDS ORDERED: CRAN450T9 PO (10:02)
[2016-10-31] MEDS ORDERED: ASCO-262 PO (10:02)
[2016-10-31] MEDS ORDERED: UBID100C44 PO (10:02)
[2016-10-31] MEDS ORDERED: CHOL20003 PO (10:02)
[2016-10-31] MEDS ORDERED: MULT-1036 PO (10:02)
[2016-10-31] MEDS ORDERED: OMEG1CAP58 PO (10:02)
[2016-10-31] MEDS ORDERED: CYAN100015 SL (10:02)
[2016-10-31 13:40] VITALS: BP 143/80
[2016-10-31] MEDS: PANTOPRAZOLE IV SCH ×2 (15:34)
[2016-10-31] MEDS: NS IV SCH ×2 (15:34)
[2016-10-31 16:00] VITALS: BP 136/80
[2016-10-31 19:19] VITALS: BP 130/68
[2016-10-31 23:19] VITALS: BP 137/85
[2016-11-01] MEDS: NS IV 1000 ML 1,000 ML IV SCH ×4 (00:28→17:38)
[2016-11-01] MEDS: fentaNYL INJECTION 100 MCG/2 ML AMP IV PRN ×2 (01:43→05:21)
[2016-11-01] MEDS: metroNIDAZOLE 500MG/100ML IVPB 100 ML IV SCH ×3 (01:44→17:39)
[2016-11-01 05:53] VITALS: BP 158/98
[2016-11-01 06:29] LABS: MEAN PLATELET VOLUME 9.6 FL (7.4-10.4); RED BLOOD COUNT 3.81 10^6/uL (4.35-5.85); RED CELL DISTRIBUTION WIDTH 13.9 % (10.0-14.5); WHITE BLOOD COUNT 10.7 10^3/uL (4.3-11.0)
[2016-11-01 06:48] LABS: ALANINE AMINOTRANSFERASE 34 U/L (0-55); ALBUMIN 3.4 G/DL (3.2-4.5); ANION GAP 11 MMOL/L (5-14); ASPARTATE AMINO TRANSFERASE 11 U/L (5-34); BILIRUBIN,TOTAL 0.5 MG/DL (0.1-1.0); BLOOD UREA NITROGEN 7 MG/DL (7-18); BUN/CREATININE RATIO 11; CALCIUM 8.4 MG/DL (8.5-10.1); CARBON DIOXIDE 21 MMOL/L (21-32); CHLORIDE 108 MMOL/L (98-107); CREATININE SERUM 0.66 MG/DL (0.60-1.30); GFR ESTIMATED > 60; GLUCOSE 112 MG/DL (70-105); POTASSIUM 3.3 MMOL/L (3.6-5.0); SODIUM 140 MMOL/L (135-145); TOTAL PROTEIN 6.3 G/DL (6.4-8.2)
[2016-11-01 08:00] VITALS: BP 134/80
[2016-11-01] MEDS: cefTRIAXone 1 GM/NS 50 ML IVPB IV SCH ×2 (08:05)
--- NOTE | 2016-11-01 09:31 | Progress Note (SOAP) ---
Subjective Subjective/Events-last exam PT REPORTS THAT SHE IS FEELING BETTER TODAY - SHE REPORTS THAT SHE IS FEELING LESS PAIN IN HER STOMACH. SHE IS NOT HAVING MUCH NAUSEA OR DISCOMFORT. Review of Systems General: Fatigue, Malaise HEENT: No Head Aches Pulmonary: No Dyspnea, No Cough Cardiovascular: No: Chest Pain Gastrointestinal: No: Nausea Genitourinary: No Dysuria Neurological: Weakness Objective Exam Vital Signs Date Time Temp Pulse Resp B/P (MAP) Pulse Ox O2 Delivery O2 Flow Rate FiO2 11/01/16 08:00 97.3 75 20 134/80 93 Nasal Cannula 2.00 11/01/16 05:53 117 158/98 10/31/16 23:19 97.8 73 20 137/85 97 Nasal Cannula 2.00 10/31/16 19:19 98.4 81 18 130/68 95 Nasal Cannula 2.00 10/31/16 19:10 Nasal Cannula 2.00 10/31/16 16:00 97.4 85 20 136/80 95 Room Air 2.00 10/31/16 15:06 2.00 10/31/16 13:40 98.5 86 17 143/80 93 Room Air 2.00 I & O 11/01/16 07:00 Intake Total 1500 ml Output Total 2400 ml Balance -900 ml Capillary Refill : Less Than 3 Seconds General Appearance: No Apparent Distress, WD/WN HEENT: PERRL/EOMI, Pharynx Normal Neck: Full Range of Motion, Supple Respiratory: Chest Non Tender, Lungs Clear, Normal Breath Sounds Cardiovascular: Regular Rate, Rhythm Gastrointestinal: normal bowel sounds, soft, tenderness Extremity: Normal Capillary Refill, No Pedal Edema Neurologic/Psychiatric: Alert, Oriented x3, No Motor/Sensory Deficits, Normal Mood/Affect Skin: Normal Color Lymphatic: No Adenopathy Results Lab Laboratory Tests 11/01/16 06:06: White Blood Count 10.7, Red Blood Count 3.81L, Hemoglobin 11.8, Hematocrit 35, Mean Corpuscular Volume 92, Mean Corpuscular Hemoglobin 31, Mean Corpuscular Hemoglobin Concent 34, Red Cell Distribution Width 13.9, Platelet Count 196, Mean Platelet Volume 9.6 11/01/16 06:12: Sodium Level 140, Potassium Level 3.3L, Chloride Level 108H, Carbon Dioxide Level 21, Anion Gap 11, Blood Urea Nitrogen 7, Creatinine 0.66, Estimat Glomerular Filtration Rate > 60, BUN/Creatinine Ratio 11, Glucose Level 112H, Calcium Level 8.4L, Total Bilirubin 0.5, Aspartate Amino Transf (AST/SGOT) 11, Alanine Aminotransferase (ALT/SGPT) 34, Alkaline Phosphatase 56, Total Protein 6.3L, Albumin 3.4 Microbiology 10/29/16 Influenza Types A,B Antigen (CAROLIN) - Final, Complete 10/29/16 Urine Culture - Final, Complete Escherichia Coli Assessment/Plan Assessment/Plan Assess & Plan/Chief Complaint DUODENAL PERFORATION ABDOMINAL PAIN ELEVATED AMYLASE, LIPASE HYPOKALEMIA E COLI URINARY TRACT INFECTION DUODENAL PERFORATION - WITH ABDOMINAL PAIN - PT ON PROTONIX IV - CONTINUE - ASSURE THAT PT IS ON BID PROTONIX. ELEVATED AMYLASE AND LIPASE - IMPROVED. HYPOKALEMIA - REPLENISH WITH IV FLUIDS E COLI UTI - CONTINUE WITH ROCEPHIN. Clinical Quality Measures DVT/VTE Risk/Contraindication: Risk Factor Score Per Nursin RFS Level Per Nursing on Admit: 3=High Contraindications-Pharm: Other *list below* Other: Peptic ulcer disease HAYDER MANRIQUE MD Nov 01, 2016 09:31
--- NOTE | 2016-11-01 10:12 | Progress Note ---
Subjective Subjective/Events-last exam Pt seating up by bedside. Even respirations. No distress noted. Alert and oriented x 3. More comfortable today than the last few days. Has had some Jello and broth. Tolerated well. No nausea or vomiting. Objective Exam Vital Signs Date Time Temp Pulse Resp B/P (MAP) Pulse Ox O2 Delivery O2 Flow Rate FiO2 11/01/16 08:00 97.3 75 20 134/80 93 Nasal Cannula 2.00 11/01/16 05:53 117 158/98 10/31/16 23:19 97.8 73 20 137/85 97 Nasal Cannula 2.00 10/31/16 19:19 98.4 81 18 130/68 95 Nasal Cannula 2.00 10/31/16 19:10 Nasal Cannula 2.00 10/31/16 16:00 97.4 85 20 136/80 95 Room Air 2.00 10/31/16 15:06 2.00 10/31/16 13:40 98.5 86 17 143/80 93 Room Air 2.00 I & O 11/01/16 07:00 Intake Total 1500 ml Output Total 2400 ml Balance -900 ml Capillary Refill : Less Than 3 Seconds General Appearance: No Apparent Distress, WD/WN HEENT: PERRL/EOMI, Pharynx Normal Neck: Full Range of Motion, Supple Respiratory: Chest Non Tender, No Accessory Muscle Use, No Respiratory Distress Cardiovascular: Regular Rate, Rhythm Gastrointestinal: soft, tenderness (c/o generalized soreness to the abdomen.), other (DECREASED BOWEL SOUNDS) Extremity: Normal Range of Motion, Non Tender, No Calf Tenderness, No Pedal Edema Neurologic/Psychiatric: Alert, Oriented x3, No Motor/Sensory Deficits, Normal Mood/Affect Skin: Normal Color, Warm/Dry Lymphatic: No Adenopathy Results Lab Laboratory Tests Test 10/31/16 04:30 11/01/16 06:06 11/01/16 06:12 Range/Units White Blood Count 9.8 10.7 4.3-11.0 10^3/uL Red Blood Count 3.68 L 3.81 L 4.35-5.85 10^6/uL Hemoglobin 11.3 L 11.8 11.5-16.0 G/DL Hematocrit 34 L 35 35-52 % Mean Corpuscular Volume 94 92 80-99 FL Mean Corpuscular Hemoglobin 31 31 25-34 PG Mean Corpuscular Hemoglobin Concent 33 34 32-36 G/DL Red Cell Distribution Width 14.2 13.9 10.0-14.5 % Platelet Count 185 196 130-400 10^3/uL Mean Platelet Volume 9.6 9.6 7.4-10.4 FL Neutrophils (%) (Auto) 75 42-75 % Lymphocytes (%) (Auto) 15 12-44 % Monocytes (%) (Auto) 7 0-12 % Eosinophils (%) (Auto) 3 0-10 % Basophils (%) (Auto) 0 0-10 % Neutrophils # (Auto) 7.4 1.8-7.8 X 10^3 Lymphocytes # (Auto) 1.4 1.0-4.0 X 10^3 Monocytes # (Auto) 0.7 0.0-1.0 X 10^3 Eosinophils # (Auto) 0.3 0.0-0.3 10^3/uL Basophils # (Auto) 0.0 0.0-0.1 10^3/uL Sodium Level 140 140 135-145 MMOL/L Potassium Level 3.4 L 3.3 L 3.6-5.0 MMOL/L Chloride Level 108 H 108 H 98-107 MMOL/L Carbon Dioxide Level 21 21 21-32 MMOL/L Anion Gap 11 11 5-14 MMOL/L Blood Urea Nitrogen 9 7 7-18 MG/DL Creatinine 0.67 0.66 0.60-1.30 MG/DL Estimat Glomerular Filtration Rate > 60 > 60 BUN/Creatinine Ratio 13 11 Glucose Level 84 112 H 70-105 MG/DL Calcium Level 8.0 L 8.4 L 8.5-10.1 MG/DL Total Bilirubin 0.5 0.5 0.1-1.0 MG/DL Aspartate Amino Transf (AST/SGOT) 13 11 5-34 U/L Alanine Aminotransferase (ALT/SGPT) 39 34 0-55 U/L Alkaline Phosphatase 51 56 40-136 U/L Total Protein 5.7 L 6.3 L 6.4-8.2 G/DL Albumin 3.0 L 3.4 3.2-4.5 G/DL Amylase Level 45 25-125 U/L Lipase 54 8-78 U/L Laboratory Tests 11/01/16 06:06: White Blood Count 10.7, Red Blood Count 3.81L, Hemoglobin 11.8, Hematocrit 35, Mean Corpuscular Volume 92, Mean Corpuscular Hemoglobin 31, Mean Corpuscular Hemoglobin Concent 34, Red Cell Distribution Width 13.9, Platelet Count 196, Mean Platelet Volume 9.6 11/01/16 06:12: Sodium Level 140, Potassium Level 3.3L, Chloride Level 108H, Carbon Dioxide Level 21, Anion Gap 11, Blood Urea Nitrogen 7, Creatinine 0.66, Estimat Glomerular Filtration Rate > 60, BUN/Creatinine Ratio 11, Glucose Level 112H, Calcium Level 8.4L, Total Bilirubin 0.5, Aspartate Amino Transf (AST/SGOT) 11, Alanine Aminotransferase (ALT/SGPT) 34, Alkaline Phosphatase 56, Total Protein 6.3L, Albumin 3.4 Microbiology 10/29/16 Influenza Types A,B Antigen (CAROLIN) - Final, Complete 10/29/16 Urine Culture - Final, Complete Escherichia Coli Assessment/Plan Assessment/Plan Assessment/Plan abdominal pain epigastric- Improving, peptic ulcer dx, pancreatitis, UTI Protonix drip, Rocephin, Flagyl to cover for possible microperforation. Patient continues to improve. Ice chips and Jello well tolerated. Summers- Patient feeling better. Minimal pain. Tolerating liquids. Denies n/v fever sweats chills shortness of breath or chest pain. general no acute distress heart reg lungs nonlabored abdomen soft no significant tenderness no guarding or rebounding ext nontender Assessment as above continue current plan Patient if continue to improve likely home tomorrow. Home on Augmentin/Flagyl/ and Protonix Would recommend EGD in approximately 6 weeks. Clinical Quality Measures DVT/VTE Risk/Contraindication: Risk Factor Score Per Nursin RFS Level Per Nursing on Admit: 3=High Contraindications-Pharm: Other *list below* Other: Peptic ulcer disease AUGUST TUCKER ORACLE PROGRAMMER Nov 01, 2016 10:12 SENTHIL SUMMERS DO Nov 01, 2016 17:36
[2016-11-01] MEDS: SUCRALFATE 1 GM (CARAFATE) TAB PO SCH ×3 (10:25→20:31)
[2016-11-01] MEDS: ACETAMINOPHEN 500 MG TAB (TYLENOL) PO PRN ×2 (15:03→21:21)
[2016-11-01] MEDS: PANTOPRAZOLE IV SCH ×2 (15:47)
[2016-11-01] MEDS: NS IV SCH ×2 (15:47)
[2016-11-01 16:00] VITALS: BP 138/83
[2016-11-02 00:15] VITALS: BP 131/78
[2016-11-02] MEDS: NS IV 1000 ML 1,000 ML IV SCH ×2 (01:24→07:50)
[2016-11-02] MEDS: metroNIDAZOLE 500MG/100ML IVPB 100 ML IV SCH ×2 (01:25→09:00)
[2016-11-02] MEDS: SUCRALFATE 1 GM (CARAFATE) TAB PO SCH ×2 (06:10→12:00)
[2016-11-02] MEDS: cefTRIAXone 1 GM/NS 50 ML IVPB IV SCH ×2 (07:51)
[2016-11-02 08:00] VITALS: BP 130/82
--- NOTE | 2016-11-02 08:25 | Progress Note ---
Subjective Subjective/Events-last exam Patient resting in bed. Easily aroused. Alert and oriented. Report no pain with palpation of the abdomen except for soreness. Ready to go home. NO N/V. Reports only one BM since admission to hospital but has been careful about eating. Objective Exam Vital Signs Date Time Temp Pulse Resp B/P (MAP) Pulse Ox O2 Delivery O2 Flow Rate FiO2 11/02/16 08:00 98.0 78 16 130/82 93 Nasal Cannula 2.00 11/02/16 00:15 96.6 76 18 131/78 93 Nasal Cannula 2.00 11/01/16 20:46 2.00 11/01/16 20:30 Room Air 11/01/16 16:00 98.3 95 20 138/83 96 Nasal Cannula 2.00 I & O 11/02/16 07:00 Intake Total 4010 ml Output Total 4400 ml Balance -390 ml Capillary Refill : Less Than 3 Seconds General Appearance: No Apparent Distress, WD/WN HEENT: PERRL/EOMI, Pharynx Normal Neck: Full Range of Motion, Supple Respiratory: Chest Non Tender, No Accessory Muscle Use, No Respiratory Distress Cardiovascular: Regular Rate, Rhythm Gastrointestinal: soft, tenderness (c/o minimal soreness to the abdomen.), other Extremity: Normal Range of Motion, Non Tender, No Calf Tenderness, No Pedal Edema Neurologic/Psychiatric: Alert, Oriented x3, No Motor/Sensory Deficits, Normal Mood/Affect Skin: Normal Color, Warm/Dry Lymphatic: No Adenopathy Results Lab Microbiology 10/29/16 Influenza Types A,B Antigen (CAROLIN) - Final, Complete 10/29/16 Urine Culture - Final, Complete Escherichia Coli Assessment/Plan Assessment/Plan Assessment/Plan abdominal pain epigastric- Improving, peptic ulcer dx, pancreatitis, UTI Patient continues to improve. continues to tolerate liquids with no abd pain or N/V. EGD recommended by Dr. Summers in 6 weeks. Kristopher- Patient feeling better. Not having any significant pain. Tolerating liquids. Denies n/v fever sweats chills shortness of breath or chest pain. general no acute distress heart reg lungs nonlabored abdomen soft no significant tenderness no guarding or rebounding ext nontender assessment as above will need egd in about 6 weeks augmentin/flagyl and protonix bid any change in condition be seen at that time. okay with discharge Clinical Quality Measures DVT/VTE Risk/Contraindication: Risk Factor Score Per Nursin RFS Level Per Nursing on Admit: 3=High Contraindications-Pharm: Other *list below* Other: Peptic ulcer disease AUGUST TUCKER APRN Nov 02, 2016 08:25 SENTHIL SUMMERS DO Nov 02, 2016 15:41
[2016-11-02] MEDS ORDERED: SUCR1TAB PO (08:53)
[2016-11-02] MEDS ORDERED: METR500T PO (08:53)
[2016-11-02] MEDS ORDERED: ACET-77 PO (08:53)
[2016-11-02] MEDS ORDERED: ONDN4T PO (08:53)
[2016-11-02] MEDS ORDERED: PANT40TA2 PO (08:53)
--- NOTE | 2016-11-02 08:56 | Discharge Inst-Complex ---
PDI Med Rec & Follow Up Appt. New Medications: Metronidazole (Flagyl) 500 Mg Tablet 500 MG PO TID, #15 TAB Ondansetron HCl (Zofran) 4 Mg Tab 4 MG PO TID PRN for NAUSEA-1ST LINE, #30 TAB Pantoprazole Sodium (Protonix) 40 Mg Tablet.dr 40 MG PO BID for 30 Days, #60 TAB 6 Refills Acetaminophen (Acetaminophen) 500 Mg Tablet 500 MG PO Q6HR PRN for PAIN, #90 TAB Sucralfate (Sucralfate) 1 Gm Tablet 1 GM PO ACHS for 30 Days, #120 TAB DISSOLVE IN 10 ML OF WATER - TAKE A SLURRY Continued Medications: Aspirin (Aspirin 325 Mg Tab) 325 Mg Tab 325-650 MG PO TWICE WEEKLY, TAB Cholecalciferol (Vitamin D3) (Vitamin D3) 2,000 Unit Capsule 2 CAP PO DAILY, CAP Cranberry Fruit (Cranberry) 450 Mg Tablet 2 TAB PO DAILY PRN for UTI PREVENTION, TAB Cyanocobalamin (Vitamin B-12) (Vitamin B-12) 1,000 Mcg Tab.subl 2 TAB SL DAILY, TAB [place]-3 Fatty Acids/Fish Oil ([place] 3 1,000 mg Softgel) 1 Each Capsule 2 CAP PO DAILY, CAP Ubidecarenone (Co Q-10) 100 Mg Capsule 2 CAP PO DAILY, CAP Discontinued Medications: Ascorbate Calcium (Vitamin C) 500 Mg Tablet 2 TAB PO DAILY, TAB Multivits,Ca,Minerals/Iron/FA (Women's Daily Formula [place]) 1 Each Tablet 2 TAB PO DAILY, TAB Prescription: Transmitted to Pharmacy ([facility]) Activity, Diet and PDI Resume Normal Activity: Yes Discharge Diet: Liquid Diet Drink 6-8 Glasses of Fluid/Day: Yes Driving Instructions: No Driving for 24 Hours Symptoms to Reoprt to : Fever Over 101 Degrees F, Pain/Pressure in Chest, Diarrhea(Persistant), Dizziness/Fainting, Nausea/Vomiting, Shortness of Breath For Problems or Questions: Contact Your Physician, Go to Emergency Room HAYDER MANRIQUE MD Nov 02, 2016 08:56
--- NOTE | 2016-11-02 08:59 | Discharge Summary ---
Diagnosis/Chief Complaint Date of Admission Oct 29, 2016 at 15:05 Date of Discharge Discharge Date: Nov 02, 2016 Discharge Time: 929 Admission Diagnosis Admission Diagnosis DUODENAL PERFORATION ABDOMINAL PAIN ELEVATED AMYLASE, LIPASE HYPOKALEMIA E COLI URINARY TRACT INFECTION Discharge Diagnosis DUODENAL PERFORATION ABDOMINAL PAIN ELEVATED AMYLASE, LIPASE HYPOKALEMIA E COLI URINARY TRACT INFECTION Reason Hospital Visit 66-year-old female admitted for suspected peptic ulcer disease based on CT findings- inflammatory stranding, diffusing thickening, around duodenum- possible perforation. Patient reports abdominal pain started last night; she has not eaten or drinking much since then. Abdominal pain is located in her upper abdomen, maybe a little radiation to the back. Patient has associated nausea but no vomiting denies any hematemesis or melena. Patient denies any history of peptic ulcer. She does believe she had a EGD and colonoscopy by Dr. Duke in 2010. Patient reports she is due for another colonoscopy in 2020. Her pain is stable- not worsening or getting better. patient denies any recent fevers denies any recent antibiotic use. Patient does believe she has irritable bowel syndrome diarrhea predominant. Patient feels a tightness bandlike on her upper abdomen which makes her feel like she can't sit still. Discharge Summary Discharge Physical Examination Allergies: Coded Allergies: codeine (Verified Allergy, Mild, 10/29/16) ibuprofen (Verified Allergy, Mild, 10/29/16) Vitals & I&Os General Appearance: Alert, Oriented X3, Cooperative, No Acute Distress HEENT: Atraumatic, PERRLA Respiratory: Clear to Auscultation, Normal Air Movement Cardiovascular: Regular Rate Abdominal: Normal Bowel Sounds, Soft, Other (MILDLY TENDER TO PALPATION) Extremities: No Clubbing, No Cyanosis, No Edema Skin: No Rashes Neuro: Normal Gait, Normal Speech, Strength at 5/5 X4 Ext, Cranial Nerves 3-12 NL Psych/Mental Status: Mental Status NL, Mood NL Hospital Course DUODENAL PERFORATION ABDOMINAL PAIN ELEVATED AMYLASE, LIPASE HYPOKALEMIA E COLI URINARY TRACT INFECTION DUODENAL PERFORATION - WITH ABDOMINAL PAIN - PT ON PROTONIX IV BID - TRANSITIONED TO ORAL PROTONIX OUTPATIENT. ELEVATED AMYLASE AND LIPASE - IMPROVED. HYPOKALEMIA - REPLENISH WITH IV FLUIDS - MONITOR SYMPTOMS. E COLI UTI - CONTINUE WITH ROCEPHIN. Discharge Condition at discharge IMPROVED Instructions to patient/family Please see electonic discharge instructions given to patient. Discharge Medications Reviewed and agree with Discharge Medication list on patient's Discharge Instruction sheet Clinical Quality Measures DVT/VTE Risk/Contraindication: Risk Factor Score Per Nursin RFS Level Per Nursing on Admit: 3=High Contraindications-Pharm: Other *list below* Other: Peptic ulcer disease HAYDER MANRIQUE MD Nov 02, 2016 08:59
[2016-11-02] MEDS: ACETAMINOPHEN 500 MG TAB (TYLENOL) PO PRN (09:00)
[2016-11-02] MEDS ORDERED: AMOX1TAB12 PO (10:45)
[2016-11-02 12:48] VITALS: BP 130/82
--- OUTSIDE RECORDS SUMMARY | 2016-12-04 04:51 | XMS REPORT | Continuity of Care Document ---
Author Author [facility] Organization [facility] Address Unknown Phone Unavailable Allergies Active Description Code Type Severity Reaction Onset Reported/Identified Relationship to Patient Clinical Status Yes codeine [id number] Drug Allergy Mild N/A 10/29/2016 Yes ibuprofen [id number] Drug Allergy Mild N/A 10/29/2016 Medications Problems Date Dx Coded Attending Type Code Diagnosis Diagnosed By 05/31/2010 Ot 455.0 INT HEMORRHOID W/O COMPL 05/31/2010 Ot 530.81 ESOPHAGEAL REFLUX 05/31/2010 Ot 535.40 OTH SPECIFIED GASTRITIS,W/O MENTION OF H 05/31/2010 Ot 562.10 DIVERTICULOSIS COLON (W/O MENT OF HEMORR 05/31/2010 Ot V12.72 PERSONAL HISTORY OF COLONIC POLYPS 05/31/2010 Ot V67.09 SURGERY FOLLOW-UP, OTHER SURGERY 07/22/2011 Ot 327.26 SLEEP RELATED HYPOVENTILATION/HYPOXEMIA 07/22/2011 Ot 327.51 PERIODIC LIMB MOVEMENT DISORDER 07/22/2011 Ot 786.09 RESPIRATORY ABNORM NEC 11/08/2013 JAZLYN MANCINI [employer] BUSINESS ANALYST Ot 784.2 SWELLING IN HEAD NECK 11/08/2013 JAZLYN MANCINI [employer] BUSINESS ANALYST Ot V70.0 ROUTINE MEDICAL EXAM 07/30/2014 WALTER FLORES MD Ot 959.6 07/30/2014 WALTER FLORES MD Ot E000.8 07/30/2014 WALTER FLORES MD Ot E888.9 04/16/2015 Ot 719.47 04/16/2015 Ot V76.12 04/16/2015 Ot 826.0 04/16/2015 Ot E000.8 04/16/2015 Ot E849.0 04/16/2015 Ot E888.9 04/16/2015 Ot 562.10 04/16/2015 Ot V76.12 04/16/2015 Ot 719.47 04/16/2015 Ot V76.12 04/16/2015 Ot 826.0 04/16/2015 Ot E000.8 04/16/2015 Ot E849.0 04/16/2015 Ot E888.9 04/16/2015 Ot 562.10 04/16/2015 Ot V76.12 04/16/2015 Ot 719.47 04/16/2015 Ot V76.12 04/16/2015 Ot 826.0 04/16/2015 Ot E000.8 04/16/2015 Ot E849.0 04/16/2015 Ot E888.9 04/16/2015 Ot 562.10 04/16/2015 Ot V76.12 11/02/2016 HAYDER MANRIQUE MD Ot B96.20 UNSP ESCHERICHIA COLI THE CAUSE OF DI 11/02/2016 HAYDER MANRIQUE MD Ot E78.00 PURE HYPERCHOLESTEROLEMIA, UNSPECIFIED 11/02/2016 HAYDER MANRIQUE MD Ot E87.6 HYPOKALEMIA 11/02/2016 HAYDER MANRIQUE MD Ot F41.9 ANXIETY DISORDER, UNSPECIFIED 11/02/2016 HAYDER MANRIQUE MD Ot G47.34 IDIO SLEEP RELATED NONOBSTRUCTIVE ALVEOL 11/02/2016 HAYDER MANRIQUE MD Ot I10 ESSENTIAL (PRIMARY) HYPERTENSION 11/02/2016 HAYDER MANRIQUE MD Ot K26.5 CHRONIC OR UNSPECIFIED DUODENAL ULCER WI 11/02/2016 HAYDER MANRIQUE MD Ot K85.90 ACUTE PANCREATITIS WITHOUT NECROSIS OR I 11/02/2016 HAYDER MANRIQUE MD Ot M19.91 PRIMARY OSTEOARTHRITIS, UNSPECIFIED SITE 11/02/2016 HAYDER MANRIQUE MD Ot N39.0 URINARY TRACT INFECTION, SITE NOT SPECIF 11/02/2016 HAYDER MANRIQUE MD Ot R09.02 HYPOXEMIA 11/09/2016 Ot 826.0 FX PHALANX, FOOT-CLOSED 11/09/2016 Ot E000.8 OTHER EXTERNAL CAUSE STATUS 11/09/2016 Ot E849.0 ACCIDENT IN HOME 11/09/2016 Ot E888.9 FALL NOS 11/09/2016 Ot 562.10 DIVERTICULOSIS COLON (W/O MENT OF HEMORR 11/09/2016 Ot V76.12 OTH SCREEN MAMMO-MALIGN NEOPLASM OF RUBI 11/23/2016 Ot 826.0 FX PHALANX, FOOT-CLOSED 11/23/2016 Ot E000.8 OTHER EXTERNAL CAUSE STATUS 11/23/2016 Ot E849.0 ACCIDENT IN HOME 11/23/2016 Ot E888.9 FALL NOS 11/23/2016 Ot 562.10 DIVERTICULOSIS COLON (W/O MENT OF HEMORR 11/23/2016 Ot V76.12 OT SCREEN MAMMO-MALIGN NEOPLASM OF RUBI 11/23/2016 WALTER FLORES MD Ot 959.6 HIP THIGH INJURY NOS 11/23/2016 WALTER FLORES MD Ot E000.8 OTHER EXTERNAL CAUSE STATUS 11/23/2016 WALTER FLORES MD Ot E888.9 FALL NOS Procedures Results Test Result Range Influenza virus A and B antigen detection - 10/29/16 13:03 FLU RESULT NEGATIVE FOR INFLUENZA A AND B ANTIGENS BY [facility] Complete blood count (CBC) with automated white blood cell (WBC) differential - 10/29/16 13:04 Blood leukocytes automated count (number/volume) 10.4 10*3/ uL 4.3-11.0 Blood erythrocytes automated count (number/volume) 4.79 10*6 /uL 4.35-5.85 Venous blood hemoglobin measurement (mass/volume) 14.8 g/dL 11.5-16.0 Blood hematocrit (volume fraction) 44 % 35-52 Automated erythrocyte mean corpuscular volume 92 [foz_us] 80-99 Automated erythrocyte mean corpuscular hemoglobin (mass per erythrocyte) 31 pg 25-34 Automated erythrocyte mean corpuscular hemoglobin concentration measurement ( mass/volume) 34 g/dL 32-36 Automated erythrocyte distribution width ratio 14.3 % 10.0-14.5 Automated blood platelet count (count/volume) 267 10*3/uL 130-400 Automated blood platelet mean volume measurement 9.6 [foz_us ] 7.4-10.4 Automated blood neutrophils/100 leukocytes 89 % 42-75 Automated blood lymphocytes/100 leukocytes 7 % 12-44 Blood monocytes/100 leukocytes 3 % 0-12 Automated blood eosinophils/100 leukocytes 0 % 0-10 Automated blood basophils/100 leukocytes 0 % 0-10 Blood neutrophils automated count (number/volume) 9.2 10*3 1.8-7.8 Blood lymphocytes automated count (number/volume) 0.8 10*3 1.0-4.0 Blood monocytes automated count (number/volume) 0.3 10*3 0.0-1.0 Automated eosinophil count 0.0 10*3/uL 0.0-0.3 Automated blood basophil count (count/volume) 0.0 10*3/uL 0.0-0.1 Comprehensive metabolic panel - 10/29/16 13:04 Serum or plasma sodium measurement (moles/volume) 140 mmol/ L 135-145 Serum or plasma potassium measurement (moles/volume) 4.1 mmol/L 3.6-5.0 Serum or plasma chloride measurement (moles/volume) 103 mmol /L 98-107 Carbon dioxide 22 mmol/L 21-32 Serum or plasma anion gap determination (moles/volume) 15 mmol/L 5-14 Serum or plasma urea nitrogen measurement (mass/volume) 19 mg/dL 7-18 Serum or plasma creatinine measurement (mass/volume) 0.86 mg /dL 0.60-1.30 Serum or plasma urea nitrogen/creatinine mass ratio 22 NRG Serum or plasma creatinine measurement with calculation of estimated glomerular filtration rate > NRG Serum or plasma glucose measurement (mass/volume) 139 mg/dL 70-105 Serum or plasma calcium measurement (mass/volume) 9.9 mg/dL 8.5-10.1 Serum or plasma total bilirubin measurement (mass/volume) 0.4 mg/dL 0.1-1.0 Serum or plasma alkaline phosphatase measurement (enzymatic activity/volume) 73 U/L 40-136 Serum or plasma aspartate aminotransferase measurement (enzymatic activity/ volume) 39 U/L 5-34 Serum or plasma alanine aminotransferase measurement (enzymatic activity/volume ) 95 U/L 0-55 Serum or plasma protein measurement (mass/volume) 7.5 g/dL 6.4-8.2 Serum or plasma albumin measurement (mass/volume) 4.1 g/dL 3.2-4.5 Magnesium - 10/29/16 13:04 Magnesium 2.2 mg/dL 1.8-2.4 Serum or plasma C reactive protein measurement (mass/volume) - 10/29/16 13:04 Serum or plasma C reactive protein measurement (mass/volume) 1.39 mg/dL 0.00-0.50 Complete urinalysis with reflex to culture - 10/29/16 13:04 Urine color determination YELLOW NRG Urine clarity determination CLEAR NRG Urine pH measurement by test strip 5 5- 9 Specific gravity of urine by test strip 1.025 1.016-1.022 Urine protein assay by test strip, semi-quantitative NEGATIVE NEGATIVE Urine glucose detection by automated test strip NEGATIVE NEGATIVE Erythrocytes detection in urine sediment by light microscopy 1+ NEGATIVE Urine ketones detection by automated test strip NEGATIVE NEGATIVE Urine nitrite detection by test strip POSITIVE NEGATIVE Urine total bilirubin detection by test strip NEGATIVE NEGATIVE Urine urobilinogen measurement by automated test strip (mass/volume) NORMAL NORMAL Urine leukocyte esterase detection by dipstick 1+ NEGATIVE Automated urine sediment erythrocyte count by microscopy (number/high power field) NONE NRG Automated urine sediment leukocyte count by microscopy (number/high power field ) [HPF] NRG Bacteria detection in urine sediment by light microscopy LARGE NRG Crystals detection in urine sediment by light microscopy NONE NRG Casts detection in urine sediment by light microscopy NONE NRG Mucus detection in urine sediment by light microscopy SMALL NRG Complete urinalysis with reflex to culture YES NRG Serum or plasma amylase measurement (enzymatic activity/volume) - 10/29/16 13: 04 Serum or plasma amylase measurement (enzymatic activity/volume) 135 U/L 25-125 Lipase - 10/29/16 13:04 Lipase 219 U/L 8-78 Bacterial urine culture - 10/29/16 13:04 Bacterial urine culture [id number] NRG COLONY COUNT >100,000/ML NR FTX;REPORTABLE SENSITIVITY REPORTED 10/30/16 15:30 NR URINE CULTURE RESULTS PLUS [facility] Bacterial susceptibility panel - 10/29/16 13:04 Gentamicin susceptibility test by minimum inhibitory concentration <= NRG Trimethoprim/sulfamethoxazole susceptibility test by minimum inhibitoryconcentration <= NRG Ampicillin susceptibility test by minimum inhibitory concentration <= NRG Tobramycin susceptibility test by minimum inhibitory concentration <= NRG Cefazolin susceptibility test by minimum inhibitory concentration <= NRG Ceftriaxone susceptibility test by minimum inhibitory concentration <= NRG Ampicillin/sulbactam susceptibility test by minimum inhibitory concentration <= NRG Piperacillin/tazobactam susceptibility test by minimum inhibitory concentration <= NRG Ciprofloxacin susceptibility test by minimum inhibitory concentration <= NRG Meropenem susceptibility test by minimum inhibitory concentration <= NRG Nitrofurantoin susceptibility test by minimum inhibitory concentration <= NRG Aztreonam susceptibility test by minimum inhibitory concentration <= NRG Extended spectrum beta lactamase (ESBL) producing bacteria susceptibility test by minimum inhibitory concentration - NR Complete blood count (CBC) with automated white blood cell (WBC) differential - 10/30/16 09:31 Blood leukocytes automated count (number/volume) 9.5 10*3/ uL 4.3-11.0 Blood erythrocytes automated count (number/volume) 4.25 10*6 /uL 4.35-5.85 Venous blood hemoglobin measurement (mass/volume) 13.1 g/dL 11.5-16.0 Blood hematocrit (volume fraction) 39 % 35-52 Automated erythrocyte mean corpuscular volume 93 [foz_us] 80-99 Automated erythrocyte mean corpuscular hemoglobin (mass per erythrocyte) 31 pg 25-34 Automated erythrocyte mean corpuscular hemoglobin concentration measurement ( mass/volume) 33 g/dL 32-36 Automated erythrocyte distribution width ratio 14.5 % 10.0-14.5 Automated blood platelet count (count/volume) 227 10*3/uL 130-400 Automated blood platelet mean volume measurement 9.7 [foz_us ] 7.4-10.4 Automated blood neutrophils/100 leukocytes 76 % 42-75 Automated blood lymphocytes/100 leukocytes 17 % 12-44 Blood monocytes/100 leukocytes 6 % 0-12 Automated blood eosinophils/100 leukocytes 1 % 0-10 Automated blood basophils/100 leukocytes 0 % 0-10 Blood neutrophils automated count (number/volume) 7.2 10*3 1.8-7.8 Blood lymphocytes automated count (number/volume) 1.6 10*3 1.0-4.0 Blood monocytes automated count (number/volume) 0.6 10*3 0.0-1.0 Automated eosinophil count 0.1 10*3/uL 0.0-0.3 Automated blood basophil count (count/volume) 0.0 10*3/uL 0.0-0.1 Comprehensive metabolic panel - 10/30/16 09:56 Serum or plasma sodium measurement (moles/volume) 139 mmol/ L 135-145 Serum or plasma potassium measurement (moles/volume) 3.7 mmol/L 3.6-5.0 Serum or plasma chloride measurement (moles/volume) 108 mmol /L 98-107 Carbon dioxide 22 mmol/L 21-32 Serum or plasma anion gap determination (moles/volume) 9 mmol/L 5-14 Serum or plasma urea nitrogen measurement (mass/volume) 13 mg/dL 7-18 Serum or plasma creatinine measurement (mass/volume) 0.74 mg /dL 0.60-1.30 Serum or plasma urea nitrogen/creatinine mass ratio 18 NRG Serum or plasma creatinine measurement with calculation of estimated glomerular filtration rate > NRG Serum or plasma glucose measurement (mass/volume) 105 mg/dL 70-105 Serum or plasma calcium measurement (mass/volume) 8.2 mg/dL 8.5-10.1 Serum or plasma total bilirubin measurement (mass/volume) 0.8 mg/dL 0.1-1.0 Serum or plasma alkaline phosphatase measurement (enzymatic activity/volume) 55 U/L 40-136 Serum or plasma aspartate aminotransferase measurement (enzymatic activity/ volume) 16 U/L 5-34 Serum or plasma alanine aminotransferase measurement (enzymatic activity/volume ) 56 U/L 0-55 Serum or plasma protein measurement (mass/volume) 6.2 g/dL 6.4-8.2 Serum or plasma albumin measurement (mass/volume) 3.3 g/dL 3.2-4.5 Complete blood count (CBC) with automated white blood cell (WBC) differential - 10/31/16 04:30 Blood leukocytes automated count (number/volume) 9.8 10*3/ uL 4.3-11.0 Blood erythrocytes automated count (number/volume) 3.68 10*6 /uL 4.35-5.85 Venous blood hemoglobin measurement (mass/volume) 11.3 g/dL 11.5-16.0 Blood hematocrit (volume fraction) 34 % 35-52 Automated erythrocyte mean corpuscular volume 94 [foz_us] 80-99 Automated erythrocyte mean corpuscular hemoglobin (mass per erythrocyte) 31 pg 25-34 Automated erythrocyte mean corpuscular hemoglobin concentration measurement ( mass/volume) 33 g/dL 32-36 Automated erythrocyte distribution width ratio 14.2 % 10.0-14.5 Automated blood platelet count (count/volume) 185 10*3/uL 130-400 Automated blood platelet mean volume measurement 9.6 [foz_us ] 7.4-10.4 Automated blood neutrophils/100 leukocytes 75 % 42-75 Automated blood lymphocytes/100 leukocytes 15 % 12-44 Blood monocytes/100 leukocytes 7 % 0-12 Automated blood eosinophils/100 leukocytes 3 % 0-10 Automated blood basophils/100 leukocytes 0 % 0-10 Blood neutrophils automated count (number/volume) 7.4 10*3 1.8-7.8 Blood lymphocytes automated count (number/volume) 1.4 10*3 1.0-4.0 Blood monocytes automated count (number/volume) 0.7 10*3 0.0-1.0 Automated eosinophil count 0.3 10*3/uL 0.0-0.3 Automated blood basophil count (count/volume) 0.0 10*3/uL 0.0-0.1 Comprehensive metabolic panel - 10/31/16 04:30 Serum or plasma sodium measurement (moles/volume) 140 mmol/ L 135-145 Serum or plasma potassium measurement (moles/volume) 3.4 mmol/L 3.6-5.0 Serum or plasma chloride measurement (moles/volume) 108 mmol /L 98-107 Carbon dioxide 21 mmol/L 21-32 Serum or plasma anion gap determination (moles/volume) 11 mmol/L 5-14 Serum or plasma urea nitrogen measurement (mass/volume) 9 mg /dL 7-18 Serum or plasma creatinine measurement (mass/volume) 0.67 mg /dL 0.60-1.30 Serum or plasma urea nitrogen/creatinine mass ratio 13 NRG Serum or plasma creatinine measurement with calculation of estimated glomerular filtration rate > NRG Serum or plasma glucose measurement (mass/volume) 84 mg/dL 70-105 Serum or plasma calcium measurement (mass/volume) 8.0 mg/dL 8.5-10.1 Serum or plasma total bilirubin measurement (mass/volume) 0.5 mg/dL 0.1-1.0 Serum or plasma alkaline phosphatase measurement (enzymatic activity/volume) 51 U/L 40-136 Serum or plasma aspartate aminotransferase measurement (enzymatic activity/ volume) 13 U/L 5-34 Serum or plasma alanine aminotransferase measurement (enzymatic activity/volume ) 39 U/L 0-55 Serum or plasma protein measurement (mass/volume) 5.7 g/dL 6.4-8.2 Serum or plasma albumin measurement (mass/volume) 3.0 g/dL 3.2-4.5 Serum or plasma amylase measurement (enzymatic activity/volume) - 10/31/16 04: 30 Serum or plasma amylase measurement (enzymatic activity/volume) 45 U/L 25-125 Lipase - 10/31/16 04:30 Lipase 54 U/L 8-78 Automated blood complete blood count (hemogram) panel - 11/01/16 06:06 Blood leukocytes automated count (number/volume) 10.7 10*3/ uL 4.3-11.0 Blood erythrocytes automated count (number/volume) 3.81 10*6 /uL 4.35-5.85 Venous blood hemoglobin measurement (mass/volume) 11.8 g/dL 11.5-16.0 Blood hematocrit (volume fraction) 35 % 35-52 Automated erythrocyte mean corpuscular volume 92 [foz_us] 80-99 Automated erythrocyte mean corpuscular hemoglobin (mass per erythrocyte) 31 pg 25-34 Automated erythrocyte mean corpuscular hemoglobin concentration measurement ( mass/volume) 34 g/dL 32-36 Automated erythrocyte distribution width ratio 13.9 % 10.0-14.5 Automated blood platelet count (count/volume) 196 10*3/uL 130-400 Automated blood platelet mean volume measurement 9.6 [foz_us ] 7.4-10.4 Comprehensive metabolic panel - 11/01/16 06:12 Serum or plasma sodium measurement (moles/volume) 140 mmol/ L 135-145 Serum or plasma potassium measurement (moles/volume) 3.3 mmol/L 3.6-5.0 Serum or plasma chloride measurement (moles/volume) 108 mmol /L 98-107 Carbon dioxide 21 mmol/L 21-32 Serum or plasma anion gap determination (moles/volume) 11 mmol/L 5-14 Serum or plasma urea nitrogen measurement (mass/volume) 7 mg /dL 7-18 Serum or plasma creatinine measurement (mass/volume) 0.66 mg /dL 0.60-1.30 Serum or plasma urea nitrogen/creatinine mass ratio 11 NRG Serum or plasma creatinine measurement with calculation of estimated glomerular filtration rate > NRG Serum or plasma glucose measurement (mass/volume) 112 mg/dL 70-105 Serum or plasma calcium measurement (mass/volume) 8.4 mg/dL 8.5-10.1 Serum or plasma total bilirubin measurement (mass/volume) 0.5 mg/dL 0.1-1.0 Serum or plasma alkaline phosphatase measurement (enzymatic activity/volume) 56 U/L 40-136 Serum or plasma aspartate aminotransferase measurement (enzymatic activity/ volume) 11 U/L 5-34 Serum or plasma alanine aminotransferase measurement (enzymatic activity/volume ) 34 U/L 0-55 Serum or plasma protein measurement (mass/volume) 6.3 g/dL 6.4-8.2 Serum or plasma albumin measurement (mass/volume) 3.4 g/dL 3.2-4.5 Encounters ACCT No. Visit Date/Time Discharge Status Pt. Type Provider Facility Loc./Unit Complaint [id number] 11/29/2016 07:00:00 2016 08:50:00 DIS Outpatient SENTHIL CLEMENTS DO [facility] ENDO PEPTIC ULCER, PANCREATITIS [id number] 11/25/2016 05:38:00 2016 11:37:00 DIS Outpatient SENTHIL CLEMENTS DO [facility] PREOP EGD [id number] 10/29/2016 15:05:00 2016 12:51:00 DIS Inpatient BURTON RAMIREZ, HAYDER Hatfield [facility] 4TH SEVERE PEPTIC ULCER DISEASE,UTI [id number] 07/09/2014 14:42:00 2013 23:59:59 CLS Outpatient MARK RAMIREZ, WALTER Monae [facility] RAD FALL C/O HIP PAIN [id number] 11/08/2013 13:49:00 2013 14:42:00 DIS Emergency JAZLYN MANCINI APRN [facility] ER POSS ALLERGIC REACTION [id number] 11/11/2016 10:45:00 PEN Preadmit MERCEDES WAKEFIELD DIRECTOR OF FINANCIAL PLANNING [facility] RAD Z12.31 [id number] 08/28/2012 08:40:00 Document Registration [id number] 07/21/2011 21:29:00 Document Registration [id number] 06/13/2011 15:15:00 Document Registration [id number] 05/06/2011 10:24:00 Document Registration [id number] 05/31/2010 08:17:00 Document Registration
--- OUTSIDE RECORDS SUMMARY | 2016-12-04 05:16 | XMS REPORT | Continuity of Care Document ---
Author Author [facility] Organization [facility] Address Unknown Phone Unavailable Allergies Active Description Code Type Severity Reaction Onset Reported/Identified Relationship to Patient Clinical Status Yes codeine [id number] Drug Allergy Mild N/A 10/29/2016 Yes ibuprofen [id number] Drug Allergy Mild N/A 10/29/2016 Medications Problems [...] 786.09 RESPIRATORY ABNORM NEC 11/08/2013 JAZLYN MANCINI TELECOMMUNICATIONS LINE INSTALLER Ot 784.2 SWELLING IN HEAD NECK 11/08/2013 JAZLYN MANCINI TELECOMMUNICATIONS LINE INSTALLER Ot V70.0 ROUTINE MEDICAL EXAM 07/30/2014 WALTER [...] FOR INFLUENZA A AND B ANTIGENS BY [facility] Complete blood count (CBC) with automated white [...] culture - 10/29/16 13:04 Bacterial urine culture [id number] NRG COLONY COUNT >100,000/ML NR FTX;REPORTABLE SENSITIVITY REPORTED 10/30/16 15:30 NR URINE CULTURE RESULTS PLUS [facility] Bacterial susceptibility panel - 10/29/16 13:04 Gentamicin [...] Status Pt. Type Provider Facility Loc./Unit Complaint [id number] 11/29/2016 07:00:00 2016 08:50:00 DIS Outpatient SENTHIL CLEMENTS DO [facility] ENDO PEPTIC ULCER, PANCREATITIS [id number] 11/25/2016 05:38:00 2016 11:37:00 DIS Outpatient SENTHIL CLEMENTS DO [facility] PREOP EGD [id number] 10/29/2016 15:05:00 2016 12:51:00 DIS Inpatient BURTON RAMIREZ, HAYDER [place] [facility] 4TH SEVERE PEPTIC ULCER DISEASE,UTI [id number] 07/09/2014 14:42:00 2013 23:59:59 CLS Outpatient MARK RAMIREZ, WALTER Monae [facility] RAD FALL C/O HIP PAIN [id number] 11/08/2013 13:49:00 2013 14:42:00 DIS Emergency JAZLYN MANCINI APRN [facility] ER POSS ALLERGIC REACTION [id number] 11/11/2016 10:45:00 PEN Preadmit MERCEDES WAKEFIELD FACILITIES CLERK [facility] RAD Z12.31 [id number] 08/28/2012 08:40:00 Document Registration [id number] 07/21/2011 21:29:00 Document Registration [id number] 06/13/2011 15:15:00 Document Registration [id number] 05/06/2011 10:24:00 Document Registration [id number] 05/31/2010 08:17:00 Document Registration
== END 2016-11-02 12:51 | disposition home or self-care (01) | DRG 380 ==
LOC: EDUNIT# 12:29 → ER 12:31 → 4TH 15:05 → ENPENDDIS 11-02 09:30
PROVIDERS: ADMIT Family Medicine; ATTEND Family Medicine
DX: K26.5 Chronic or unspecified duodenal ulcer with perforation (principal); K85.90 Acute pancreatitis without necrosis or infection, unspecified; N39.0 Urinary tract infection, site not specified; B96.20 Unspecified Escherichia coli [E. coli] as the cause of diseases classified elsewhere; E87.6 Hypokalemia; I10 Essential (primary) hypertension; E78.00 Pure hypercholesterolemia, unspecified; F41.9 Anxiety disorder, unspecified; R09.02 Hypoxemia; G47.34 Idiopathic sleep related nonobstructive alveolar hypoventilation; M19.91 Primary osteoarthritis, unspecified site
CPT/HCPCS: 36415; 74176; 80053; 81000; 82150; 83690; 83735; 85025; 85027; 86141; 87088; 87186; 87804; 94664; 96361; 96374; 96375

== ENCOUNTER 2016-11-25 05:38 | Outpatient (CLI) | payer MEDICARE ==
[~2016-11-25] VITALS: Ht 162.6 cm; Wt 82.6 kg
[~2016-11-25 05:38] MED LIST changes: +ACET-77 PO; +AMOX1TAB12 PO; +ASCO-262 PO; +CHOL20003 PO; +CRAN450T9 PO; +CYAN100015 SL; +METR500T PO; +MULT-1036 PO; +OMEG1CAP58 PO; +ONDN4T PO; +PANT40TA2 PO; +SUCR1TAB PO; +UBID100C44 PO
== END 2016-11-25 11:37 ==
LOC: PREOP 05:38
PROVIDERS: ATTEND Surgery
DX: Z01.818 Encounter for other preprocedural examination (principal); K27.9 Peptic ulcer, site unspecified, unspecified as acute or chronic, without hemorrhage or perforation

== ENCOUNTER 2016-11-29 07:00 | Day surgery (SDC) | payer MEDICARE ==
[~2016-11-29] VITALS: Ht 162.6 cm; Wt 82.6 kg
[2016-11-29] MEDS ORDERED: NS IV 1000 ML 1,000 ML IV STA (07:11)
[2016-11-29] MEDS ORDERED: proPOfol 200 MG/20 ML (DIPRIVAN) VIAL IV ONE (07:13)
[2016-11-29] MEDS ORDERED: HURRICAINE EXT TUBE (BENZOCAINE) XX PRN (07:15)
[2016-11-29] MEDS ORDERED: NS IV 1000 ML 1,000 ML ONE (07:22)
[2016-11-29 07:41] VITALS: BP 137/87
[2016-11-29 08:20] VITALS: BP 121/74
[2016-11-29 08:45] VITALS: BP 128/81
[2016-11-29 08:50] VITALS: BP 128/81
--- NOTE | 2016-11-29 08:56 | Progress Note-Post Operative ---
Post-Operative Progess Note Surgeon (s)/Saddle Lining Stitcher (s) Surgeon SENTHIL CLEMENTS DO Saddle Lining Stitcher: na Pre-Operative Diagnosis peptic ulcer dz Post-Operative Diagnosis slight gastritis/duodenitis, schotzki's ring Procedure & Operative Findings Date of Procedure 11/29/16 Procedure Preformed/Findings egd c biopsy antrum Anesthesia Type per manager of exhibitions and collections Estimated Blood Loss Estimated blood loss (mL): none Specimens/Packing Specimens Removed antrum Packing: none SENTHIL CLEMENTS DO November 29, 2016 8:55 am
--- NOTE | 2016-11-29 09:40 | OPERATIVE REPORT ---
DATE OF SERVICE: 11/29/2016 PREOPERATIVE DIAGNOSIS: Peptic ulcer disease. POSTOPERATIVE DIAGNOSIS: Slight gastritis as well as Schatzki's ring. PROCEDURE: EGD with biopsy of the antrum. SURGEON: Senthil Summers DO ANESTHESIA: Per POWER TRANSFORMER REPAIRER. ESTIMATED BLOOD LOSS: None. COMPLICATIONS: None. INDICATIONS: The patient is a 66-year-old female with recent hospitalization showed some inflammation of the duodenum suggestive of peptic ulcer disease. She was explained risks and benefits of procedure and wished to proceed with procedure to evaluate the upper gastrointestinal tract. Consent was signed and in the chart. DESCRIPTION OF PROCEDURE: The patient was taken to the endoscopy suite, placed in left lateral recumbent position. Timeout was performed. Scope was inserted in mouth, down into esophagus, stomach and into the duodenum without difficulty. There were minimal erythematous changes consistent a slight duodenitis. There are no ulcers, polyps or masses. The scope was slowly retracted back into the stomach, which has had slight erythematous changes. Biopsy of the antrum was obtained. Small polyps were present but benign in appearance. The scope was retroflexed, noting no hiatal hernia. No other pathology noted. The scope was returned to its normal position, slowly withdrawn back into the distal esophagus and had slight formation of Schatzki's ring. No other erythematous changes, no polyps, masses or ulceration. The scope was slowly retracted back, noting no other pathology. The patient tolerated procedure well without any complications. She was taken to the recovery room in stable condition. RECOMMENDATIONS: The patient will continue on current medications. She will return to clinic in 2-3 weeks to see how she is doing at that time. Job ID: [id number] DocumentID: [id number] Dictated Date: 11/29/2016 09:00:30 Lithopone Charger Date: 11/29/2016 09:39:08 Dictated By: SENTHIL SUMMERS DO
[2016-11-29] MEDS ORDERED: HURRICAINE EXT TUBE (BENZOCAINE) ONE (11:29)
== END 2016-11-29 08:50 | disposition home or self-care (01) ==
LOC: ENDO 07:00
PROVIDERS: ATTEND Surgery
DX: K29.70 Gastritis, unspecified, without bleeding (principal); K22.2 Esophageal obstruction; K31.7 Polyp of stomach and duodenum
CPT/HCPCS: 88305

== ENCOUNTER 2016-12-26 10:00 | Outpatient (CLI) | payer MEDICARE ==
[~2016-12-26] VITALS: Ht 162.6 cm; Wt 82.6 kg
== END 2016-12-26 10:55 ==
LOC: PREOP 10:00
PROVIDERS: ATTEND Surgery
DX: Z01.818 Encounter for other preprocedural examination (principal); Z86.010 Personal history of colon polyps

== ENCOUNTER 2016-12-27 09:23 | Day surgery (SDC) | payer MEDICARE ==
[2016-12-27 09:30] VITALS: BP 126/88
[2016-12-27] MEDS ORDERED: NS IV 1000 ML 1,000 ML ONE (09:47)
[2016-12-27] MEDS ORDERED: NS IV 1000 ML 1,000 ML IV STA (10:00)
[2016-12-27] MEDS ORDERED: fentaNYL INJECTION 100 MCG/2 ML AMP ONE (11:31)
[2016-12-27] MEDS ORDERED: proPOfol 200 MG/20 ML (DIPRIVAN) VIAL IV ONE (11:31)
--- NOTE | 2016-12-27 11:35 | Progress Note-Pre Operative ---
Pre-Operative Progress Note H&P Reviewed The H&P was reviewed, patient examined and no changes noted. Date Seen by Provider: Dec 27, 2016 Time Seen by Provider: 11:35 Date H&P Reviewed: Dec 27, 2016 Time H&P Reviewed: 11:35 Pre-Operative Diagnosis: history of polyps SENTHIL CLEMENTS DO Dec 27, 2016 11:35 am
[2016-12-27] MEDS ORDERED: OXYTOCIN/NORMAL SALINE 0 ML IV ONE (11:40)
[2016-12-27] MEDS ORDERED: MIDAZOLAM 2 MG/2 ML (VERSED) VIAL ONE (12:04)
--- NOTE | 2016-12-27 12:18 | Discharge Inst-Simple/Standard ---
Discharge Inst-Standard Patient Instructions/Follow Up Plan of Care/Instructions/FU: Follow up with DR. Summers in 2 weeks Will need repeat colonoscopy in 5 years or sooner if any changes noted. Activity as Tolerated: Yes Discharge Diet: No Restrictions AUGUST TUCKER APRN Dec 27, 2016 12:18
--- NOTE | 2016-12-27 12:21 | Progress Note-Post Operative ---
Post-Operative Progess Note Surgeon (s)/Mine Surveyor (s) Surgeon SENTHIL CLEMENTS DO Mine Surveyor: na Pre-Operative Diagnosis history of polyps Post-Operative Diagnosis sigmoid colon polyp, diverticulosis Procedure & Operative Findings Date of Procedure 12/27/16 Procedure Performed/Findings colonoscopy with hot bx polypectomy Anesthesia Type per [facility] Estimated Blood Loss Estimated blood loss (mL): none Specimens/Packing Specimens Removed sigmoid colon polyp SENTHIL CLEMENTS DO Dec 27, 2016 12:21 pm
[2016-12-27 12:25] VITALS: BP 128/80
[2016-12-27 12:55] VITALS: BP 110/65
--- NOTE | 2016-12-27 14:09 | OPERATIVE REPORT ---
DATE OF SERVICE: 12/27/2016 PREOPERATIVE DIAGNOSIS: History of colon polyps. POSTOPERATIVE DIAGNOSIS: Sigmoid colon polyp, diverticulosis. PROCEDURE: Colonoscopy with hot biopsy polypectomy. SURGEON: Senthil Summers DO ANESTHESIA: Per MDA. ESTIMATED BLOOD LOSS: None. COMPLICATIONS: None. INDICATIONS: The patient is a 66-year-old female with history of colon polyps. She understands risks and benefits of procedure and wished to proceed with procedure. Consent was signed in the chart. PROCEDURE IN DETAIL: The patient was taken to the endoscopy suite, placed in left lateral recumbent position. Timeout was performed. Digital rectal exam was performed and there were no palpable polyps, mass or ulcerations. The scope was inserted in the rectum and advanced all the way to the cecum with minimal difficulty. Prep was adequate. Scope was then slowly retracted back. There were no polyps, masses or ulcerations of the cecum, ascending, transverse and descending colon. Within the sigmoid colon, a small amount of diverticulosis was present. Small polyp was present, which hot biopsy polypectomy was performed. Scope was slowly retracted back into the rectum where it was also retroflexed noting some internal hemorrhoids. No other pathology noted. Scope was returned to its normal position slowly withdrawn until completely removed. The patient tolerated the procedure well without any complications. She was taken to recovery room in stable condition. RECOMMENDATIONS: The patient will need repeat colonoscopy in 5 years. If she has any problems prior to that, she should be reevaluated at that time. We will follow up in the office in 2 weeks. Job ID: [id number] DocumentID: [id number] Dictated Date: 12/27/2016 12:23:29 Door Hanger Date: 12/27/2016 14:09:12 Dictated By: SENTHIL SUMMERS DO
== END 2016-12-27 13:05 | disposition home or self-care (01) ==
LOC: ENDO 09:23
PROVIDERS: ATTEND Surgery
DX: Z12.11 Encounter for screening for malignant neoplasm of colon (principal); K63.5 Polyp of colon; K57.30 Diverticulosis of large intestine without perforation or abscess without bleeding; K64.8 Other hemorrhoids
CPT/HCPCS: 88305

== ENCOUNTER → 2020-06-01 | Outpatient (CLI) | payer MEDICARE ==
[~2020-06-01] MED LIST changes: -ACET-77 PO; +ACET-78 PO
--- NOTE | 2020-06-01 11:13 | Diagnostic Imaging Report ---
INDICATION: Low back pain, hip pain, left leg radiculopathy. COMPARISON: None. FINDINGS: Three views of the lumbar column demonstrate normal alignment. There is no subluxation or fracture. No osseous lesion is seen. Minimal to mild degenerative changes are seen throughout the disc spaces. There is moderate facet joint hypertrophy. This is most pronounced at L4-L5 and L5-S1. The SI joints are symmetric. IMPRESSION: Diffuse degenerative changes without fracture. Dictated by: Dictated on workstation # [id number]
--- NOTE | 2020-06-01 12:26 | Diagnostic Imaging Report ---
INDICATION: LT HIP PAIN LOW BACK PAIN. A pop while closing recliner 2 days ago. TECHNIQUE: 2 views of the left hip. CORRELATION STUDY: None FINDINGS: Images of the hip demonstrate no evidence for acute fracture. Alignment is anatomic. The femoral head acetabular relationship is unremarkable. The bony trabecular pattern is intact. IMPRESSION: 1. Negative for acute bony abnormality of the left hip. Dictated by: Dictated on workstation # [id number]
== END ==
LOC: RAD 09:54
PROVIDERS: ATTEND Nurse Practitioner Family
DX: M47.26 Other spondylosis with radiculopathy, lumbar region (principal); M25.552 Pain in left hip
CPT/HCPCS: 72100; 73502

== ENCOUNTER 2022-04-27 05:40 | Outpatient (CLI) | payer MEDICARE ==
[~2022-04-27] VITALS: Ht 160 cm; Wt 75.5 kg
== END 2022-04-27 16:06 | disposition home or self-care (01) ==
LOC: PREOP 05:40
PROVIDERS: ATTEND Surgery
DX: Z01.818 Encounter for other preprocedural examination (principal)

== ENCOUNTER 2022-05-10 08:20 | Day surgery (SDC) | payer MEDICARE ==
[~2022-05-10] VITALS: Ht 160 cm; Wt 75.5 kg
[2022-05-10] MEDS ORDERED: LACTATED RINGERS 1,000 ML IV STA (08:23)
[2022-05-10 08:45] VITALS: BP 148/88
[2022-05-10] MEDS ORDERED: PROPOFOL INJECTION 50 ML IV ONE (09:39)
[2022-05-10] MEDS ORDERED: proPOfol 200 MG/20 ML (DIPRIVAN) VIAL IV ONE (10:24)
--- NOTE | 2022-05-10 10:28 | Anesthesia-General Post-Op ---
MAC Patient Condition Mental Status/LOC: Same as Preop Cardiovascular: Satisfactory Nausea/Vomiting: Absent Respiratory: Satisfactory Pain: Controlled Complications: Absent Post Op Complications Complications None Follow Up Care/Instructions Patient Instructions None needed. Anesthesiology Discharge Order Discharge Order Patient is doing well, no complaints, stable vital signs, no apparent adverse anesthesia problems. No complications reported per nursing. DAVID BARTHOLOMEW CRNA May 10, 2022 10:28
--- NOTE | 2022-05-10 10:30 | Progress Note-Post Operative ---
Post-Operative Progess Note Surgeon (s)/Multiple Effect Evaporator Operator (s) Surgeon SENTHIL CLEMENTS DO Multiple Effect Evaporator Operator: N/A Pre-Operative Diagnosis history of polyps Post-Operative Diagnosis Diverticulosis Colon Polyp Rectal Polyp Procedure & Operative Findings Date of Procedure 05/10/22 Procedure Performed/Findings Colonoscopy with hot biopsy polypectomy x 3 Diverticula Anesthesia Type per senior materials scientist Estimated Blood Loss Estimated blood loss (mL): None Specimens/Packing Specimens Removed Cecum Polyp x1 Rectal Polyp x2 SENTHIL CLEMENTS DO May 10, 2022 10:30
--- NOTE | 2022-05-10 10:31 | Discharge Inst-Simple/Standard ---
Discharge Inst-Standard Reconcile Patient Problems Problems Reviewed?: Yes Patient Instructions/Follow Up Plan of Care/Instructions/FU: f/u in two weeks with Dr. Summers Activity as Tolerated: Yes Discharge Diet: Regular Diet (high fiber diet) SENTHIL SUMMERS DO May 10, 2022 10:31
[2022-05-10 10:34] VITALS: BP 112/71
[2022-05-10 10:40] VITALS: BP 112/71
[2022-05-10 11:07] VITALS: BP 112/71
--- NOTE | 2022-05-10 18:41 | OPERATIVE REPORT ---
DATE OF SERVICE: 05/10/2022 PREOPERATIVE DIAGNOSIS: History of colon polyps. POSTOPERATIVE DIAGNOSES: Colon polyps and diverticulosis. PROCEDURES PERFORMED: Colonoscopy with hot biopsy polypectomy x3. SURGEON: Senthil Summers DO. ANESTHESIA: Per HEAD BUYER TOBACCO. ESTIMATED BLOOD LOSS: None. COMPLICATIONS: None. INDICATIONS FOR PROCEDURE: The patient is a 72-year-old female with history of colon polyps. She understands risks and benefits of the procedure and wished to proceed and consent was signed in the chart. DESCRIPTION OF PROCEDURE: The patient was taken to the endoscopy suite and placed in the left lateral recumbent position. Timeout was performed. Digital rectal exam was performed. No palpable polyps, masses or ulcerations. Scope was inserted in the rectum, advanced all the way to the cecum with minimal difficulty. The ileum was intubated and no pathology noted. Scope was retracted back to the cecum. Prep was adequate. Scope was then slowly retracted back. A polyp in the cecum was present, which hot biopsy polypectomy was performed. Scope was then continuously and slowly retracted back. No polyps, masses or ulcerations within the ascending, transverse, descending and sigmoid colon. Diverticulosis was present in the left colon. The rectum had two small polyps, which hot biopsy polypectomy was performed. Scope was also retroflexed noting no other pathology. Scope was returned to its normal position, slowly withdrawn until completely removed. The patient tolerated the procedure well without any complication. She was taken to recovery room in stable condition. RECOMMENDATIONS: The patient will need repeat colonoscopy in 5 years if benefits outweigh the risks, but due to age, we would also consider no more. If any problems before that be seen at that time. The patient will follow up on pathology in 2 weeks. Job ID: [id number] DocumentID: [id number] Dictated Date: 05/10/2022 10:40:00 Can Operator Date: 05/10/2022 18:41:23 Dictated By: SENTHIL SUMMERS DO
== END 2022-05-10 11:10 | disposition home or self-care (01) ==
LOC: ENDO 08:20
PROVIDERS: ATTEND Surgery
DX: Z12.11 Encounter for screening for malignant neoplasm of colon (principal); D12.0 Benign neoplasm of cecum; K62.1 Rectal polyp; K57.30 Diverticulosis of large intestine without perforation or abscess without bleeding; Z28.310 Unvaccinated for COVID-19

== ENCOUNTER → 2022-06-28 | Outpatient (CLI) | payer MEDICARE ==
--- NOTE | 2022-06-28 08:57 | Diagnostic Imaging Report ---
INDICATION: Postmenopausal female COMPARISON: None FINDINGS: AP Spine L1-L4: [BMD (g/cm2): 1.555] [T-Score: 3.0] [Z-Score: 4.5] [BMD Previous: NA] [BMD % Change: NA] LT Hip Neck: [BMD (g/cm2): 0.928] [T-Score: -0.8] [Z-Score: 0.9] LT Hip Total: [BMD (g/cm2):1.157] [T-Score:1.2] [Z-Score: 2.6] [BMD Previous: NA] [BMD % Change: NA] RT Hip Neck: [BMD (g/cm2):0.893] [T-Score:-1.0] [Z-Score:0.6] RT Hip Total: [BMD (g/cm2):1.048] [T-score:0.3] [Z-Score:1.8] [BMD Previous:NA] [BMD % Change:NA] *Indicates significant change from prior examination based on 95% confidence level. World Health Organization criteria for BMD interpretation classify patients as Normal (T-score at or above -1.0), Osteopenic (T-score between -1.0 and -2.5) or Osteoporotic (T-score at or below -2.5). LIMITATIONS AND MODIFICATION: Degenerative change and curvature in the lumbar spine may falsely elevate bone density. FRACTURE RISK (FRAX SCORE): The ten year probability of (%): Major Osteoporotic Fracture: [NA] Hip Fracture: [NA] IMPRESSION: 1. Normal bone mineral density. 2. Baseline examination. 3. See below National Osteoporosis Foundation guidelines on when to potentially initiate pharmacologic therapy. Based on the National Osteoporosis Foundation Guidelines, pharmacologic treatment should be initiated in any of the following, unless clinical conditions suggest otherwise: * Any patient with prior fragility fracture of the hip or vertebrae. A spine fracture indicates 5X risk for subsequent spine fracture and 2X risk for subsequent hip fracture. * Osteoporosis (T-score <-2.5). * Postmenopausal women and men age 50 and older with low bone mass/osteopenia (T-score between -1.0 and -2.5) by DXA and 10-year major osteoporotic fracture greater than 20% or a 10-year probability of hip fracture greater than 3%. These fracture risks are supplied above in the FRAX score, if applicable. * Clinician judgement and/or patient preferences may indicate treatment for people with 10-year fracture probabilities above or below these levels. Dictated by: Dictated on workstation # [id number]
--- NOTE | 2022-06-28 16:38 | Diagnostic Imaging Report ---
INDICATION: Routine screening. COMPARISON: 08/28/2012. TECHNIQUE: 2D and 3D bilateral screening mammography was performed with CAD. FINDINGS: Both breasts are heterogeneously dense, limiting the sensitivity of mammography. There is some nodularity with associated architectural distortion just lateral to the nipple line on the CC view at mid depth within the left breast. This appears to be superiorly located on the MLO view. Additional views are recommended. The right breast is unremarkable. The nodular density in the medial left breast is stable. No malignant-appearing microcalcifications are seen. The axillae are unremarkable. IMPRESSION: Left breast density with architectural distortion. Additional views are recommended for further evaluation. ACR BI-RADS Category 0: Incomplete. (Needs additional imaging evaluation). Result letter will be mailed to the patient. Note: At least 10% of breast cancer is not imaged by mammography. Dictated by: Dictated on workstation # [id number]
== END ==
LOC: RAD 08:00
PROVIDERS: ATTEND Family Medicine
DX: Z12.31 Encounter for screening mammogram for malignant neoplasm of breast (principal); N63.20 Unspecified lump in the left breast, unspecified quadrant; Z78.0 Asymptomatic menopausal state
CPT/HCPCS: 77063; 77067; 77080

== ENCOUNTER → 2022-07-06 | Outpatient (CLI) | payer MEDICARE ==
--- NOTE | 2022-07-06 14:28 | Diagnostic Imaging Report ---
INDICATION: Left breast architectural distortion. Patient presents for additional views. COMPARISON: Correlation is made with the screening study from 06/28/2022. TECHNIQUE: Unilateral left 2D and 3D diagnostic mammography was performed with CAD. This includes spot compression CC and ML views as well as conventional 90 degree lateral views. FINDINGS: There is a persistent area of irregular density and architectural distortion in the upper and slightly outer left breast approximately 5-6 cm from the nipple. Further evaluation of this area with ultrasound is recommended. IMPRESSION: Persistent architectural distortion in the upper outer left breast mid depth. Further evaluation with ultrasound is recommended and will be performed today. ACR BI-RADS Category 0: Incomplete. (Needs additional imaging evaluation). Result letter will be mailed to the patient. Note: At least 10% of breast cancer is not imaged by mammography. Dictated by: Dictated on workstation # [id number]
--- NOTE | 2022-07-06 14:30 | Diagnostic Imaging Report ---
INDICATION: Abnormal mammogram. COMPARISON: Correlation is made with the diagnostic mammogram from earlier this same day as well as the screening mammogram from 06/28/2022. FINDINGS: Sonographic interrogation of the upper left breast was performed. There is an irregular hypoechoic solid appearing mass at the 12 o'clock location 5 cm from the nipple measuring 7 mm x 3 mm x 4 mm. This does show some posterior acoustic shadowing. This likely accounts for the mammographic architectural distortion. The left axilla does show a fatty lymph node with a thin cortex. IMPRESSION: A solid, irregular hypoechoic mass at the 12 o'clock location of the left breast 5 cm from the nipple likely accounts for the mammographic architectural distortion. This is concerning for a small breast malignancy. Tissue sampling is recommended. This would be amenable to ultrasound-guided core biopsy. ACR BI-RADS Category 4: Suspicious abnormality. Result letter will be mailed to the patient. Note: At least 10% of breast cancer is not imaged by mammography. Dictated by: Dictated on workstation # [id number]
== END ==
LOC: RAD 12:46
PROVIDERS: ATTEND Family Medicine
DX: N63.25 Unspecified lump in the left breast, overlapping quadrants (principal)
CPT/HCPCS: 76642; 77065; G0279

== ENCOUNTER → 2022-07-13 | Outpatient (CLI) | payer MEDICARE ==
[~2022-07-13] MED LIST changes: +CATHETER FLUSH 10 ML SYR IV PRN; +HOLD METFORMIN - RECEIVED CONTRAST 20 ML VIAL IV SCH; +IOHEXOL 350 MG/ML 100 ML (OMNIPAQUE 350) VIAL IV ONE; +LIDOCAINE 1% INJ 30 ML (XYLOCAINE) VIAL INJ ONE; +NS 100 ML (IVPB) BAG IV ONE
--- NOTE | 2022-07-13 20:55 | Diagnostic Imaging Report ---
INDICATION: Status post left breast ultrasound-guided biopsy. FINDINGS: Unilateral left 2D, CC and ML mammography was performed after patient underwent ultrasound-guided biopsy. Images demonstrate a marker clip at the area of architectural distortion in the upper left breast. IMPRESSION: Marker clip placement, as described. Dictated by: Dictated on workstation # [id number]
--- NOTE | 2022-07-13 20:56 | Diagnostic Imaging Report ---
INDICATION: Left breast mass. Patient presents for ultrasound-guided biopsy. PROCEDURE: Patient was brought to the sonographic suite and placed on table in the supine position. Ultrasound imaging of the left breast was performed to evaluate appropriate entry site. Left breast was then prepped and draped in the usual sterile fashion. A small amount of 1% lidocaine was utilized for local anesthesia. A total of 4 core biopsies were obtained of the nodule at the 12:00 location of left breast utilizing 14-gauge Achieve needle. A marker clip was then deployed. Hemostasis was obtained utilizing manual compression. Patient tolerated the procedure well and was sent for post procedure mammogram in satisfactory condition. IMPRESSION: Successful ultrasound-guided core biopsy of the hypoechoic nodule in the 12:00 location of left breast. Pathology results are currently pending. Dictated by: Dictated on workstation # [id number]
== END ==
LOC: RAD 12:19
PROVIDERS: ATTEND Family Medicine
DX: N63.20 Unspecified lump in the left breast, unspecified quadrant (principal); Z98.82 Breast implant status
CPT/HCPCS: 19083; 77065; G0279

== ENCOUNTER 2022-07-26 13:49 | Outpatient (RCR) | payer MEDICARE ==
[~2022-07-26 13:49] MED LIST changes: -CATHETER FLUSH 10 ML SYR IV PRN; -HOLD METFORMIN - RECEIVED CONTRAST 20 ML VIAL IV SCH; -IOHEXOL 350 MG/ML 100 ML (OMNIPAQUE 350) VIAL IV ONE; -LIDOCAINE 1% INJ 30 ML (XYLOCAINE) VIAL INJ ONE; -NS 100 ML (IVPB) BAG IV ONE
[2022-08-04] MEDS ORDERED: [UNRECOGNIZED DRUG - REMARK] (11:50)
[2022-08-11] MEDS ORDERED: DOCU-143 PO (11:23)
[2022-08-11] MEDS ORDERED: ACHD5005 PO (11:23)
[2022-08-11] MEDS ORDERED: ONDA4TAB11 SL (11:23)
== END 2022-08-23 | disposition home or self-care (01) ==
LOC: ONC 13:49
PROVIDERS: ATTEND Internal Medicine Hematology & Oncology
DX: C50.912 Malignant neoplasm of unspecified site of left female breast (principal)
CPT/HCPCS: 99204

== ENCOUNTER → 2022-08-04 | Outpatient (CLI) | payer MEDICARE ==
[~2022-08-04] VITALS: Ht 162 cm; Wt 75.0 kg
[~2022-08-04] MED LIST changes: +[UNRECOGNIZED DRUG - REMARK]
== END | disposition home or self-care (01) ==
LOC: PREOP 05:31
PROVIDERS: ATTEND Surgery
DX: Z01.818 Encounter for other preprocedural examination (principal)

== ENCOUNTER 2022-08-11 06:24 | Day surgery (SDC) | payer MEDICARE ==
[2022-08-11] VITALS (11 sets, daily range): BP systolic 134–170; BP diastolic 75–97
[~2022-08-11] VITALS: Ht 162 cm; Wt 75.0 kg
[2022-08-11] MEDS ORDERED: ceFAZolin INJECTION 2,000 MG in NS (IVPB) 50 ML IV ONE (06:45)
[2022-08-11] MEDS ORDERED: BUP/EPI 0.5% 1:200,000 (SENSORCAINE) 30 ML VIAL ONE (07:32)
[2022-08-11] MEDS ORDERED: METHYLENE BLUE 0.5% (PROVAYBLUE) 50 mg/10 ml vial IV ONE (07:32)
[2022-08-11] MEDS ORDERED: LIDOCAINE 1% INJ 30 ML (XYLOCAINE) VIAL INJ ONE (08:15)
[2022-08-11] MEDS ORDERED: fentaNYL INJ 100 MCG/2 ML AMP ONE (09:14)
[2022-08-11] MEDS: LACTATED RINGERS 1,000 ML IV PRN ×2 (09:17→11:25)
--- NOTE | 2022-08-11 09:56 | Diagnostic Imaging Report ---
INDICATION: Left breast carcinoma. Patient presents for ultrasound-guided hookwire localization. DETAILS OF THE PROCEDURE: The patient was brought to the sonographic suite and placed on the table in the supine position. Ultrasound imaging of the left breast was performed to evaluate for an appropriate entry site. The left breast was then prepped and draped in the usual sterile fashion. A small amount of 1% lidocaine was utilized for local anesthesia. A localizing needle was advanced through the hypoechoic nodule at the 12 o'clock location of the left breast 5 cm from the nipple. The hookwire was then deployed and the needle was removed. The hookwire was affixed to the patient's skin. The patient tolerated the procedure well and was sent for a post procedure mammogram in satisfactory condition. IMPRESSION: Successful ultrasound guided hookwire localization of the hypoechoic nodule at the 12 o'clock location of the left breast 5 cm from the nipple. Dictated by: Dictated on workstation # [id number]
--- NOTE | 2022-08-11 09:59 | Progress Note-Pre Operative ---
Pre-Operative Progress Note Date of Available H&P: Jul 29, 2022 Date H&P Reviewed: Aug 11, 2022 Time H&P Reviewed: 09:59 History & Physical: H&P Reviewed, Patient Examed, No changes noted Pre-Operative Diagnosis: left breast invasive ductal carcinoma SENTHIL CLEMENTS DO Aug 11, 2022 09:59
[2022-08-11] MEDS ORDERED: proPOfol 200 MG/20 ML (DIPRIVAN) VIAL IV ONE (10:12)
[2022-08-11] MEDS ORDERED: LIDOCAINE PF 2% 5 ML (XYLOCAINE) VIAL ONE (10:13)
[2022-08-11] MEDS: METHYLENE BLUE 0.5% (PROVAYBLUE) 50 mg/10 ml vial IV ONE (10:15)
[2022-08-11] MEDS ORDERED: BUP/EPI 0.5% 1:200,000 (SENSORCAINE) 30 ML VIAL INJ ONE (10:48)
--- NOTE | 2022-08-11 11:02 | Diagnostic Imaging Report ---
INDICATION: Left breast carcinoma. Patient is status post ultrasound-guided hookwire localization. TECHNIQUE: Unilateral left 2D CC and ML mammography was performed. FINDINGS: There is a hookwire noted in the upper left breast. The tip of the hookwire is adjacent to the marker clip. IMPRESSION: Hookwire placement, as described. Dictated by: Dictated on workstation # [id number]
--- NOTE | 2022-08-11 11:12 | Diagnostic Imaging Report ---
INDICATION: Left breast carcinoma. Patient is status post lumpectomy. FINDINGS: A specimen radiograph was submitted. The hookwire as well as the marker clip and spiculated nodule are all included in the specimen. The nodular density appears to be located within coordinates 10. The marker clip is within coordinate F9. IMPRESSION: Specimen radiograph, as described. Dictated by: Dictated on workstation # [id number]
[2022-08-11] MEDS ORDERED: DOCU-143 PO (11:23)
[2022-08-11] MEDS ORDERED: ONDA4TAB11 SL (11:23)
[2022-08-11] MEDS ORDERED: ACHD5005 PO (11:23)
[2022-08-11] MEDS ORDERED: ONDANSETRON 4 MG/2 ML (SDV) Z0FRAN ONE (11:25)
--- NOTE | 2022-08-11 11:25 | Discharge Inst-Simple/Standard ---
Discharge Inst-Standard Discharge Medications New, Converted or Re-Newed RX: Transmitted to Pharmacy Patient Instructions/Follow Up Plan of Care/Instructions/FU: 2 weeks Kristopher Activity as Tolerated: Yes Discharge Diet: Regular Diet Other Inst to Patient Follow up Appt: Make appointment for 2 week. Instructions: No lifting greater than 10 pounds. No strenuous activity. May shower in 24 hours, no tub bath or soaking. Use incentive spirometer at home as directed. No Smoking Skin/Wound Care: You have special glue over your incision that will fall off on it's own. Wear supportive bra like a sports bra, even when sleeping for extra support. Change bandage daily if still using a bandage for comfort. Symptoms to Report: Appetite Changes, Extremity Discoloration, Numbness/Tingling, Swelling I ncreased, Bleeding Excessive, Eyesight Changes, Pain Increased, Urine Color Change, Constipation(Persistent), Fever over 101 degree F, Pain/Pressure in chest, Urinating Difficulty, Cough Up/Vomit Blood, Heart Beat Irreg/Pounding, Pain/Pressure in jaw, Vaginal Bleeding Increase, Cramps in feet or legs, Lightheadedness, Pain/Pressure in shoulder, Diarrhea(Persistent), Memory Changes Suddenly, Questions/Concerns, Weight gain consecutive days, Dizziness/Fainting, Nausea/Vomiting, Shortness of Breath, Weight gain over 2 pounds If questions or concerns contact your physician Or seek help at emergency department. SENTHIL CLEMENTS DO Aug 11, 2022 11:25
[2022-08-11] MEDS ORDERED: SEVOFLURANE (ULTANE) 15 ML INHAL SOLN ONE (11:26)
--- NOTE | 2022-08-11 11:42 | Anesthesia-General Post-Op ---
General Patient Condition Mental Status/LOC: Same as Preop Cardiovascular: Satisfactory Nausea/Vomiting: Absent Respiratory: Satisfactory Pain: Controlled Complications: Absent Post Op Complications Complications None Follow Up Care/Instructions Patient Instructions None needed. Anesthesia/Patient Condition Patient Condition Patient is doing well, no complaints, stable vital signs, no apparent adverse anesthesia problems. No complications reported per nursing. ACE ACEVES CRNA Aug 11, 2022 11:42
[2022-08-11] MEDS ORDERED: fentaNYL INJ 100 MCG/2 ML AMP IVP ONE (11:45)
[2022-08-11] MEDS ORDERED: morphine INJ 10 MG/ML 1ML (SYR OR VIAL) IVP ONE (11:45)
[2022-08-11] MEDS ORDERED: ONDANSETRON 4 MG/2 ML (SDV) Z0FRAN IVP PRN (11:45)
--- NOTE | 2022-08-11 11:48 | Diagnostic Imaging Report ---
Indication: Left breast carcinoma. Study is performed prior to lumpectomy. Total of 1.02 mCi technetium 99m lymphoseek was injected in 4 separate aliquots in a periareolar distribution of the left breast. Imaging was then performed. There is migration of activity to the left axilla. The sentinel node was marked on patient's skin. IMPRESSION: Left breast lymphoscintigraphy, as described. Dictated by: Dictated on workstation # [id number]
[2022-08-11] MEDS ORDERED: ACETAMINOPHEN 500 MG TAB (TYLENOL) ONE (12:40)
[2022-08-11] MEDS ORDERED: ACETAMINOPHEN 500 MG TAB (TYLENOL) PO ONE (12:45)
--- NOTE | 2022-08-12 21:00 | OPERATIVE REPORT ---
DATE OF SERVICE: 08/11/2022 PREOPERATIVE DIAGNOSIS: Invasive ductal carcinoma of the left breast. POSTOPERATIVE DIAGNOSIS: Invasive ductal carcinoma of the left breast. PROCEDURE: Left breast wire localized lumpectomy with sentinel node biopsy. SURGEON: Ed Summers DO. RN TRAVELING: Dr. Flores who assisted in retraction, dissection, and closure. ANESTHESIA: General. ESTIMATED BLOOD LOSS: Minimal. COMPLICATIONS: None. INDICATIONS: The patient is a 72-year-old female with invasive ductal carcinoma of the left breast. She wishes to proceed with lumpectomy and sentinel node biopsy. She understands the risks and benefits and consent was signed and in chart. DESCRIPTION OF PROCEDURE: The patient was taken to the operating suite. She was prepped and draped in sterile fashion. Timeout was performed. A 1 mL of methylene blue was inserted in four locations just around the nipple and massaged for 10 minutes for distribution of the methylene blue. The breast was then reprepped and draped. A wire had already been previously placed. An incision was made and the wire was brought out through the incision circumferentially dissecting around the wire to remove the specimen. Once removed, the specimen was tagged for anatomical location. This was sent for Radiology, which confirmed removal of the clip, wire and specimen. Hemostasis was achieved. The wound was irrigated with water. The wound was then closed using 4-0 Monocryl in subcuticular fashion. New set up was used, [place] counter was used to isolate the sentinel node activity. Incision was made over the area, which cautery was used to dissect down through the subcutaneous tissues. I felt a slight area of firmness, which was grasped, elevated and a portion of fat was removed. No activity within this area, we continued to dissect down through the fat layer, which then encompassed the node that was blue and hot. In vivo number was [id number]. Cautery was then used to excise this area. Ex vivo number is [id number]. Nothing within 10% of either number present, so the wound was then irrigated and hemostasis was achieved. The skin was then closed using 4-0 Monocryl in a subcuticular fashion. The incision had skin Affix placed over the incisions. The patient tolerated the procedure well without complications. She was taken to recovery room in stable condition. Job ID: [id number] DocumentID: [id number] Dictated Date: 08/12/2022 11:59:08 Mandarin Tutor Date: 08/12/2022 20:57:00 Dictated By: DO DOMINGA SUGGS
== END 2022-08-11 15:15 | disposition home or self-care (01) ==
LOC: CARD 06:24
PROVIDERS: ATTEND Surgery
DX: C50.912 Malignant neoplasm of unspecified site of left female breast (principal)
CPT/HCPCS: 19285; 19301; 38525; 76098; 77065; 78195; 87081; A4648; A9520; G0279

== ENCOUNTER 2022-08-30 10:44 | Outpatient (RCR) | payer MEDICARE ==
[~2022-08-30 10:44] MED LIST changes: +ACHD5005 PO; +DOCU-143 PO; +ONDA4TAB11 SL
== END 2022-09-20 | disposition home or self-care (01) ==
LOC: ONC 10:44
PROVIDERS: ATTEND Internal Medicine Hematology & Oncology
DX: C50.912 Malignant neoplasm of unspecified site of left female breast (principal)

== ENCOUNTER → 2022-10-21 | Outpatient (RCR) | payer MEDICARE | END | disposition home or self-care (01) | LOC: ONC 09-26 10:59 | PROVIDERS: ATTEND Internal Medicine Hematology & Oncology | DX: Z51.0 Encounter for antineoplastic radiation therapy (principal); C50.912 Malignant neoplasm of unspecified site of left female breast | CPT/HCPCS: 77290; 77295; 77300; 77307; 77334; 77336; 77417; 99205 ==

== ENCOUNTER 2022-11-01 15:02 | Outpatient (RCR) | payer MEDICARE | END 2022-11-20 | disposition home or self-care (01) | LOC: ONC 15:02 | PROVIDERS: ATTEND Internal Medicine Hematology & Oncology | DX: C50.912 Malignant neoplasm of unspecified site of left female breast (principal) | CPT/HCPCS: 77280; 77336 ==

== ENCOUNTER 2022-12-13 09:37 | Outpatient (RCR) | payer MEDICARE | END 2022-12-21 | disposition home or self-care (01) | LOC: ONC 09:37 | PROVIDERS: ATTEND Internal Medicine Hematology & Oncology | DX: C50.912 Malignant neoplasm of unspecified site of left female breast (principal) | CPT/HCPCS: 36415; 99213 ==

== ENCOUNTER 2023-03-07 10:38 | Outpatient (RCR) | payer MEDICARE | END 2023-03-23 | disposition home or self-care (01) | LOC: ONC 10:38 | PROVIDERS: ATTEND Internal Medicine Hematology & Oncology | DX: C50.912 Malignant neoplasm of unspecified site of left female breast (principal) | CPT/HCPCS: 99214 ==

== ENCOUNTER → 2023-06-21 | Outpatient (CLI) | payer MEDICARE ==
--- NOTE | 2023-06-21 16:27 | Diagnostic Imaging Report ---
INDICATION: Left breast carcinoma status post lumpectomy and radiation therapy. COMPARISON: 07/13/2022. TECHNIQUE: 2D and 3D bilateral diagnostic mammography was performed with CAD. FINDINGS: Both breasts are heterogeneously dense, limiting the sensitivity of mammography. There are post therapeutic changes in the left breast. No discrete mass or malignant-appearing microcalcifications are identified apart from a benign nodule in the medial left breast. Axillae are unremarkable. IMPRESSION: Post therapeutic changes. No mammographic features suspicious for malignancy are identified. ACR BI-RADS Category 2: Benign findings. Result letter will be mailed to the patient. Note: At least 10% of breast cancer is not imaged by mammography. Dictated by: Dictated on workstation # [id number]
== END ==
LOC: RAD 09:00
PROVIDERS: ATTEND Internal Medicine Hematology & Oncology
DX: Z51.0 Encounter for antineoplastic radiation therapy (principal); C50.912 Malignant neoplasm of unspecified site of left female breast; Z98.890 Other specified postprocedural states
CPT/HCPCS: 77066; G0279; 77062